=== PATIENT | female | born 1985 | race Caucasian/White ===

== ENCOUNTER 2020-04-26 14:28 | Inpatient (IN) | payer MEDICAID ==
--- NOTE | 2020-04-26 14:36 | ED ---
Recheck HPI <Derick Robb - Last Filed: 04/26/20 15:47> - General Source: patient Mode of arrival: wheelchair Limitations: no limitations <Magdiel Eduardo - Last Filed: 04/26/20 16:10> - General Chief Complaint: Recheck/Abnormal Lab/Rx Stated Complaint: Abnormal labs Time Seen by Provider: 04/26/20 14:35 - History of Present Illness Initial Comments: 34-year-old male presents emergency Department with a chief complaint of abnormal labs. Patient reports she has developed shortness of breath for the past several months along with generalized fatigue. Patient reports increased fatigue particularly with exertion. Patient reports she's been having some "chest congestion" that is also been going on for an extended period time. She denies any chest pain at this time. Reports she saw her primary care, Dr Rivas, this morning who ordered some laboratory work. Patient reports she had labs obtained today and I contacted to come to the emergency department for blood transfusion. Patient denies hematuria, hematochezia or melena. She denies abdominal back pain. Denies any vaginal bleeding. (Magdiel Eduardo) - Related Data Home Medications Medication Instructions Recorded Confirmed Albuterol Inhaler [Ventolin Hfa 1 puff INHALATION RT-Q4H PRN 04/26/20 04/26/20 Inhaler] Cetirizine HCl [Zyrtec] 10 mg PO HS 04/26/20 04/26/20 Ibuprofen [Motrin Ib] 600 mg PO Q8H PRN 04/26/20 04/26/20 Magnesium 200 mg PO HS 04/26/20 04/26/20 Omeprazole 20 mg PO HS 04/26/20 04/26/20 Allergies Allergy/AdvReac Type Severity Reaction Status Date / Time latex AdvReac Rash/Hives Verified 04/26/20 15:30 Review of Systems ROS Other: All systems not noted in ROS Statement are negative. <Derick Robb - Last Filed: 04/26/20 15:47> ROS Other: All systems not noted in ROS Statement are negative. <Magdiel Eduardo - Last Filed: 04/26/20 16:10> ROS Statement: Those systems with pertinent positive or pertinent negative responses have been documented in the HPI. Past Medical History Past Medical History: No Reported History History of Any Multi-Drug Resistant Organisms: None Reported Past Surgical History: Back Surgery Past Anesthesia/Blood Transfusion Reactions: No Reported Reaction Past Psychological History: No Psychological Hx Reported Smoking Status: Never smoker Past Alcohol Use History: None Reported Past Drug Use History: None Reported <Magdiel Eduardo - Last Filed: 04/26/20 16:10> General Exam Limitations: no limitations General appearance: alert, in no apparent distress, obese Head exam: Present: atraumatic, normocephalic, normal inspection Eye exam: Present: normal appearance, PERRL, EOMI, other (Pale conjunctiva) Pupils: Present: normal accommodation ENT exam: Present: normal exam, normal oropharynx (pale mucous membranes), mucous membranes moist Neck exam: Present: normal inspection, full ROM. Absent: tenderness Respiratory exam: Present: normal lung sounds bilaterally. Absent: respiratory distress, wheezes, rales, rhonchi, stridor Cardiovascular Exam: Present: normal rhythm, tachycardia, normal heart sounds Extremities exam: Present: normal inspection, full ROM, normal capillary refill. Absent: tenderness, pedal edema, joint swelling, calf tenderness Back exam: Present: normal inspection, full ROM. Absent: tenderness, CVA tenderness (R), CVA tenderness (L) Neurological exam: Present: alert, oriented X3, normal gait Psychiatric exam: Present: normal affect, normal mood Skin exam: Present: warm, dry, intact, normal color <Magdiel Eduardo - Last Filed: 04/26/20 16:10> Course Vital Signs 04/26/20 04/26/20 14:29 15:20 Temperature 98.0 F Pulse Rate 120 H 112 H Respiratory 18 16 Rate Blood Pressure 149/65 150/84 O2 Sat by Pulse 98 100 Oximetry Medical Decision Making - Lab Data Result diagrams: 04/26/20 15:10 04/26/20 15:10 <Derick Robb - Last Filed: 04/26/20 15:47> - Lab Data Result diagrams: 04/26/20 15:10 04/26/20 15:10 <Magdiel Eduardo - Last Filed: 04/26/20 16:10> - Medical Decision Making Patient reexamined and reevaluated by myself, Dr. Robb. Patient is resting comfortably in bed however does appear pale. Patient states symptoms have been occurring for months. Patient has had fatigue and some shortness of breath, especially with exertion. Patient does not appear in any distress at this time. Patient updated on results and plan. Additional studies ordered. Case was discussed in detail with Dr. Patel, covering for Dr. Rivas, who will admit. He does request 3 units of blood to be transfused as well as [employer] consult. (Derick Robb) - Lab Data Lab Results 04/26/20 04/26/20 04/26/20 Range/Units 15:10 15:10 15:10 WBC 7.3 (3.8-10.6) k/uL RBC 2.14 L (3.80-5.40) m/uL Hgb 2.9 L* (11.4-16.0) gm/dL Hct 12.2 L* (34.0-46.0) % MCV 57.0 L (80.0-100.0) fL MCH 13.3 L (25.0-35.0) pg MCHC 23.4 L (31.0-37.0) g/dL RDW 20.9 H (11.5-15.5) % Plt Count 469 H (150-450) k/uL MPV 7.1 Neutrophils % 69 % Lymphocytes % 24 % Monocytes % 5 % Eosinophils % 1 % Basophils % 1 % Neutrophils # 5.0 (1.3-7.7) k/uL Lymphocytes # 1.8 (1.0-4.8) k/uL Monocytes # 0.3 (0-1.0) k/uL Eosinophils # 0.1 (0-0.7) k/uL Basophils # 0.0 (0-0.2) k/uL Hypochromasia Marked Poikilocytosis Slight Anisocytosis Moderate Microcytosis Marked Retic Count (0.5-2.0) % PT (9.0-12.0) sec INR (<1.2) APTT (22.0-30.0) sec Sodium 140 (137-145) mmol/L Potassium 4.0 (3.5-5.1) mmol/L Chloride 107 (98-107) mmol/L Carbon Dioxide 21 L (22-30) mmol/L Anion Gap 12 mmol/L BUN 9 (7-17) mg/dL Creatinine 0.50 L (0.52-1.04) mg/dL Est GFR (CKD-EPI)AfAm >90 (>60 ml/min/1.73 sqM) Est GFR (CKD-EPI)NonAf >90 (>60 ml/min/1.73 sqM) Glucose 113 H (74-99) mg/dL Calcium 9.0 (8.4-10.2) mg/dL Total Bilirubin 0.4 (0.2-1.3) mg/dL AST 32 (14-36) U/L ALT 22 (4-34) U/L Alkaline Phosphatase 114 (38-126) U/L Troponin I (0.000-0.034) ng/mL Total Protein 7.2 (6.3-8.2) g/dL Albumin 3.9 (3.5-5.0) g/dL Stool Occult Blood (Negative) Blood Type O Positive Blood Type Recheck O Pos Bld Type Recheck Status No Antibody Screen NEGATIVE Crossmatch See Detail Spec Expiration Date 04/29/2020 - 230904/26/20 04/26/20 04/26/20 Range/Units 15:10 15:10 15:16 WBC (3.8-10.6) k/uL RBC (3.80-5.40) m/uL Hgb (11.4-16.0) gm/dL Hct (34.0-46.0) % MCV (80.0-100.0) fL MCH (25.0-35.0) pg MCHC (31.0-37.0) g/dL RDW (11.5-15.5) % Plt Count (150-450) k/uL MPV Neutrophils % % Lymphocytes % % Monocytes % % Eosinophils % % Basophils % % Neutrophils # (1.3-7.7) k/uL Lymphocytes # (1.0-4.8) k/uL Monocytes # (0-1.0) k/uL Eosinophils # (0-0.7) k/uL Basophils # (0-0.2) k/uL Hypochromasia Poikilocytosis Anisocytosis Microcytosis Retic Count (0.5-2.0) % PT 11.7 (9.0-12.0) sec INR 1.1 (<1.2) APTT 17.6 L (22.0-30.0) sec Sodium (137-145) mmol/L Potassium (3.5-5.1) mmol/L Chloride (98-107) mmol/L Carbon Dioxide (22-30) mmol/L Anion Gap mmol/L BUN (7-17) mg/dL Creatinine (0.52-1.04) mg/dL Est GFR (CKD-EPI)AfAm (>60 ml/min/1.73 sqM) Est GFR (CKD-EPI)NonAf (>60 ml/min/1.73 sqM) Glucose (74-99) mg/dL Calcium (8.4-10.2) mg/dL Total Bilirubin (0.2-1.3) mg/dL AST (14-36) U/L ALT (4-34) U/L Alkaline Phosphatase (38-126) U/L Troponin I <0.012 (0.000-0.034) ng/mL Total Protein (6.3-8.2) g/dL Albumin (3.5-5.0) g/dL Stool Occult Blood Negative (Negative) Blood Type Blood Type Recheck Bld Type Recheck Status Antibody Screen Crossmatch Spec Expiration Date 04/26/20 Range/Units 15:49 WBC (3.8-10.6) k/uL RBC (3.80-5.40) m/uL Hgb (11.4-16.0) gm/dL Hct (34.0-46.0) % MCV (80.0-100.0) fL MCH (25.0-35.0) pg MCHC (31.0-37.0) g/dL RDW (11.5-15.5) % Plt Count (150-450) k/uL MPV Neutrophils % % Lymphocytes % % Monocytes % % Eosinophils % % Basophils % % Neutrophils # (1.3-7.7) k/uL Lymphocytes # (1.0-4.8) k/uL Monocytes # (0-1.0) k/uL Eosinophils # (0-0.7) k/uL Basophils # (0-0.2) k/uL Hypochromasia Poikilocytosis Anisocytosis Microcytosis Retic Count 2.2 H (0.5-2.0) % PT (9.0-12.0) sec INR (<1.2) APTT (22.0-30.0) sec Sodium (137-145) mmol/L Potassium (3.5-5.1) mmol/L Chloride (98-107) mmol/L Carbon Dioxide (22-30) mmol/L Anion Gap mmol/L BUN (7-17) mg/dL Creatinine (0.52-1.04) mg/dL Est GFR (CKD-EPI)AfAm (>60 ml/min/1.73 sqM) Est GFR (CKD-EPI)NonAf (>60 ml/min/1.73 sqM) Glucose (74-99) mg/dL Calcium (8.4-10.2) mg/dL Total Bilirubin (0.2-1.3) mg/dL AST (14-36) U/L ALT (4-34) U/L Alkaline Phosphatase (38-126) U/L Troponin I (0.000-0.034) ng/mL Total Protein (6.3-8.2) g/dL Albumin (3.5-5.0) g/dL Stool Occult Blood (Negative) Blood Type Blood Type Recheck Bld Type Recheck Status Antibody Screen Crossmatch Spec Expiration Date - EKG Data EKG Comments: Sinus tachycardia, no ST or T-wave changes. Ventricular rate 111, NM 140, QRS 84, QTc 465. (Magdiel Eduardo) Critical Care Time Critical Care Time: Yes <Magdiel Eduardo - Last Filed: 04/26/20 16:10> Critical Care Time: Over 31 minutes (Magdiel Eduardo) Disposition <Derick Robb - Last Filed: 04/26/20 15:47> Is patient prescribed a controlled substance at d/c from ED?: No Time of Disposition: 16:10 <Magdiel Eduardo - Last Filed: 04/26/20 16:10> Clinical Impression: Microcytic anemia, Fatigue Disposition: ADMITTED IP TO THIS HOSP Condition: Good Referrals: Brian Rivas MD [Primary Care Provider] - 1-2 days
[2020-04-26 15:14] LABS: Anisocytosis Moderate; Basophils % (A) 1 %; Eosinophils # (A) 0.1 k/uL (0-0.7); Eosinophils % (A) 1 %; Hypochromasia Marked; Lymphocytes # (A) 1.8 k/uL (1.0-4.8); Lymphocytes % (A) 24 %; MCH 13.3 pg (25.0-35.0); MCHC 23.4 g/dL (31.0-37.0); Mean Platelet Volume 7.1; Microcytosis Marked; Monocytes # (A) 0.3 k/uL (0-1.0); Monocytes % (A) 5 %; Neutrophils % (A) 69 %; Platelet Count 469 k/uL (150-450); Poikilocytosis Slight; RBC 2.14 m/uL (3.80-5.40); RDW 20.9 % (11.5-15.5); WBC 7.3 k/uL (3.8-10.6)
[2020-04-26 15:21] LABS: HCT 12.2 % (34.0-46.0); HGB 2.9 gm/dL (11.4-16.0)
[2020-04-26 15:23] LABS: ALT 22 U/L (4-34); AST 32 U/L (14-36); African American GFR (CKD) >90 (>60 ml/min/1.73 sqM); Albumin 3.9 g/dL (3.5-5.0); Alkaline Phosphatase 114 U/L (38-126); Anion Gap 12 mmol/L; Blood Urea Nitrogen 9 mg/dL (7-17); Carbon Dioxide 21 mmol/L (22-30); Chloride 107 mmol/L (98-107); Glucose 113 mg/dL (74-99); Non-African American GFR(CKD) >90 (>60 ml/min/1.73 sqM); Sodium 140 mmol/L (137-145); Total Bilirubin 0.4 mg/dL (0.2-1.3); Total Protein 7.2 g/dL (6.3-8.2)
[2020-04-26 15:33] LABS: INR 1.1 (<1.2); Prothrombin Time 11.7 sec (9.0-12.0)
[2020-04-26 15:49] LABS: Partial Thromboplastin Time 17.6 sec (22.0-30.0)
--- NOTE | 2020-04-26 15:50 | XR ---
EXAMINATION TYPE: XR chest 2V DATE OF EXAM: 04/26/2020 COMPARISON: NONE HISTORY: Weakness and anemia. TECHNIQUE: Frontal and lateral views of the chest are obtained. FINDINGS: There is no focal air space opacity, pleural effusion, or pneumothorax seen. The cardiac silhouette size is enlarged. Osseous structures are intact. IMPRESSION: Cardiomegaly without acute pulmonary process.
[2020-04-26 15:56] LABS: Reticulocyte % 2.2 % (0.5-2.0)
[2020-04-26] MEDS ORDERED: NALOXONE 0.4 MG/ML 1 ML VIAL IV PRN (16:08)
[2020-04-26] MEDS ORDERED: HYDROcodone/APAP 5-325MG 1 EACH TAB PO PRN (16:08)
[2020-04-26] MEDS ORDERED: HYDROmorphone 0.5 MG/0.5 ML SYRINGE IVP PRN (16:08)
[2020-04-26] MEDS ORDERED: LORazepam 2 MG/ML INJ IV PRN (16:08)
[2020-04-26] MEDS ORDERED: MORPHINE SULFATE 4 MG/ML SYRINGE IV PRN (16:08)
[2020-04-26] MEDS ORDERED: ONDANSETRON 4 MG/2 ML VIAL IVP PRN (16:08)
--- NOTE | 2020-04-26 17:32 | US ---
EXAMINATION TYPE: US pelvic complete DATE OF EXAM: 04/26/2020 COMPARISON: None CLINICAL HISTORY: 34-year-old female anemia. EC patient with very low hemoglobin; ; patient state d since onset of menstruation has had heavy periods; patient denies vaginal bleeding now. Not on winston od now. TECHNIQUE: Transabdominal (TA). Transabdominal sonographic images of the pelvis were acquired to pr ovide best field of view due to the above patient history; HT5'5", WT [id number]. Date of LMP: 03/31/2020 FINDINGS: EXAM MEASUREMENTS: Uterus: 14.5 x 9.9 x 8.4 cm Endometrial Stripe: obscured by large uterine fibroid Right Ovary: 5.6 x 4.0x 4.2 cm Left Ovary: 2.2 x 2.3 x 2.0 cm 1. Uterus: abnormally enlarged uterus; heterogeneous appearance to uterus and endometrium with large heterogeneous round mass seen within mid and upper uterus measuring 6.9 x 7.6 x 6.2cm. There is winston pheral and internal color flow seen suggesting large uterine fibroid obscuring endometrium. 2. Endometrium: endometrial stripe is obscured by large uterine fibroid 3. Right Ovary: enlarged right ovary secondary to a cyst measuring 4.0 x 2.9 x 3.1cm 4. Left Ovary: multiple small follicles seen color flow imaging is observed in bilateral ovary 5. Bilateral Adnexa: wnl 6. Posterior cul-de-sac: wnl IMPRESSION: 1. Large centrally located uterine fibroid measuring up to 7.6 cm obscuring the endometrial stripe. C onsider [facility] referral if concern for a symptomatic submucosal or intracavitary fibroid. 2. Right ovary enlarged secondary to a 4.0 cm cyst, possible dominant follicle or functional cyst. Fo llow-up in 6-8 weeks to ensure involution.
--- NOTE | 2020-04-26 22:43 | P.HPIM ---
History of Present Illness H&P Date: 04/26/20 Chief Complaint: Weak and tired History of presenting complaint: This is a very pleasant 34-year-old patient of Dr. Rivas. Under [place] possible history. Progressively over last few months patient noticed that she is getting more and more short of breath and weakness dizzy tired. Gets cramps in lower extremity. For quite sometime she normally has menstrual cycle lasting for at least 5-6 days. And gets thick clots. Patient also does take Motrin intermittently for different aches and pains. She was found to have a hemoglobin of 2.6. Repeat hemoglobin here was 2.9. Was ordered 3 units of blood in the ER. Currently in a second unit of blood transfusion. Review of systems: GEN.: Tired EYES: None HEENT: None NECK: None RESPIRATORY: None CARDIOVASCULAR: None GASTROINTESTINAL: None GENITOURINARY: Heavy menstrual cycle MUSCULOSKELETAL: None LYMPHATICS: None HEMATOLOGICAL: None PSYCHIATRY: None NEUROLOGICAL: None Past medical history to include: Chronic menorrhagia, intermittent aches and pains in the joints Social history: Does not smoke or drink alcohol. Works at [employer]. . Has a 5-year-old son Family history: Reviewed, noncontributory to presentation Physical examination: VITAL SIGNS: 98.2, 96, 18, 162/93, 98% GENERAL: BMI 40.8, declining in bed, tired. EYES: Pupils equal. Conjunctiva palel. HEENT: External appearance of nose and ears normal, oral cavity grossly normal. NECK: JVD not raised; masses not palpable. HEART: First and second heart sounds are normal; no edema. LUNGS: Respiratory rate normal; clear to auscultation. ABDOMEN: Soft, nontender, liver spleen not palpable, no masses palpable. PSYCH: Alert and oriented x3; mood and affect normal. NEUROLOGICAL: Cranial nerves grossly intact; no facial asymmetry, power and sensation grossly intact. LYMPHATICS: No lymph nodes palpable in the axilla and neck INVESTIGATIONS, reviewed in the clinical context: White count 7.3 hemoglobin 2.9 decreased MCV platelets 469. Reticulocyte count 2.2 potassium 4.0 creatinine 0.50 EKG tracing personally reviewed by me-normal sinus rhythm with a heart rate of 111 Chest x-ray film personally reviewed by me--borderline cardiomegaly Pelvic ultrasound: Abnormally enlarged uterus and endometrium with large hetero genous ground mass seen within with an upper uterus 6.9 x 7.6 x 6.2 cm large uterine fibroid obscuring endometrium. Enlarged right ovary secondary to assist left ovary multiple small follicles seen. Assessment: -Possibly acute on chronic severe microcytic anemia from blood loss dominantly from menorrhagia secondary to large uterine fibroid and a hyperactive endometrium. Patient has a 5-year-old child and patient states she is completed to family. Other endometrial ablation and/or a hysterectomy may be indicated consideration given the severe blood loss. -Right ovary enlarged seconded to 4 cm cyst. -Morbid obesity BMI 40.8 -Patient does take intermittent NSAIDs in the form of Motrin for aches and pains answered endoscopy would be warranted. Plan: Patient been ordered 3 units of blood for severe anemia which is symptomatic. Consultation made to GI and gynecology. Care was discussed with the patient and questions were answered. Repeat CBC in the morning. Past Medical History Past Medical History: No Reported History History of Any Multi-Drug Resistant Organisms: None Reported Past Surgical History: Back Surgery Past Anesthesia/Blood Transfusion Reactions: No Reported Reaction Smoking Status: Never smoker - Past Family History Father Family Medical History: No Reported History Mother Family Medical History: No Reported History Medications and Allergies Home Medications Medication Instructions Recorded Confirmed Type Albuterol Inhaler [Ventolin Hfa 1 puff INHALATION RT-Q4H PRN 04/26/20 04/26/20 History Inhaler] Cetirizine HCl [Zyrtec] 10 mg PO HS 04/26/20 04/26/20 History Ibuprofen [Motrin Ib] 600 mg PO Q8H PRN 04/26/20 04/26/20 History Magnesium 200 mg PO HS 04/26/20 04/26/20 History Omeprazole 20 mg PO HS 04/26/20 04/26/20 History Allergies Allergy/AdvReac Type Severity Reaction Status Date / Time latex AdvReac Rash/Hives Verified 04/26/20 15:30 Physical Exam Vitals: Vital Signs Temp Pulse Resp BP Pulse Ox 04/26/20 20:39 99.1 F 95 18 165/94 97 04/26/20 20:18 98 04/26/20 20:09 98.4 F 101 H 18 163/89 97 04/26/20 20:04 99.1 F 99 18 160/92 97 04/26/20 20:00 98.2 F 96 18 162/93 98 04/26/20 19:59 98.2 F 87 18 161/91 98 04/26/20 19:03 98.4 F 104 H 169/99 98 04/26/20 18:25 99.8 F H 101 H 18 170/86 99 04/26/20 17:28 99.1 F 98 18 149/80 2 L 04/26/20 16:45 99.0 F 109 H 16 155/83 04/26/20 16:30 98.6 F 108 H 16 155/83 04/26/20 16:15 99.8 F H 102 H 14 158/90 100 04/26/20 16:05 99.8 F H 100 13 161/87 100 04/26/20 15:55 98 F 106 H 20 161/87 100 04/26/20 15:20 112 H 16 150/84 100 04/26/20 14:29 98.0 F 120 H 18 149/65 98 Intake and Output 04/26/20 04/26/20 04/26/20 06:59 14:59 22:59 Intake Total 310 Balance 310 Intake: Blood Product 310 Rc Cpda-1 Unit 310 [id number] Rc Cpda-1 Unit 0 [id number] Other: Weight 111.13 kg Results CBC & Chem 7: 04/26/20 15:10 04/26/20 15:10 Labs: Abnormal Lab Results - Last 24 Hours (Table) 04/26/20 04/26/20 04/26/20 Range/Units 15:10 15:10 15:10 RBC 2.14 L (3.80-5.40) m/uL Hgb 2.9 L* (11.4-16.0) gm/dL Hct 12.2 L* (34.0-46.0) % MCV 57.0 L (80.0-100.0) fL MCH 13.3 L (25.0-35.0) pg MCHC 23.4 L (31.0-37.0) g/dL RDW 20.9 H (11.5-15.5) % Plt Count 469 H (150-450) k/uL Retic Count (0.5-2.0) % APTT (22.0-30.0) sec Carbon Dioxide 21 L (22-30) mmol/L Creatinine 0.50 L (0.52-1.04) mg/dL Glucose 113 H (74-99) mg/dL Crossmatch See Detail 04/26/20 04/26/20 Range/Units 15:10 15:49 RBC (3.80-5.40) m/uL Hgb (11.4-16.0) gm/dL Hct (34.0-46.0) % MCV (80.0-100.0) fL MCH (25.0-35.0) pg MCHC (31.0-37.0) g/dL RDW (11.5-15.5) % Plt Count (150-450) k/uL Retic Count 2.2 H (0.5-2.0) % APTT 17.6 L (22.0-30.0) sec Carbon Dioxide (22-30) mmol/L Creatinine (0.52-1.04) mg/dL Glucose (74-99) mg/dL Crossmatch Thrombosis Risk Factor Assmnt - Choose All That Apply Any of the Below Risk Factors Present?: Yes Each Factor Represents 1 point: Obesity (BMI >25) Other Risk Factors: No Other congenital or acquired thrombophilia - If yes, enter type in comment: No Thrombosis Risk Factor Assessment Total Risk Factor Score: 1 Thrombosis Risk Factor Assessment Level: Low Risk
[2020-04-27] MEDS: ACETAMINOPHEN TAB 325 MG TAB PO PRN ×3 (02:12→18:36)
[2020-04-27 03:17] LABS: % Iron Saturation 1.8 (12.00-45.00); Ferritin 3.1 ng/mL (10.0-291.0)
[2020-04-27 08:44] LABS: Anisocytosis Marked; Basophils % (A) 0 %; Eosinophils # (A) 0.1 k/uL (0-0.7); Eosinophils % (A) 1 %; HCT 20.4 % (34.0-46.0); Hypochromasia Marked; Lymphocytes % (A) 25 %; MCH 21.4 pg (25.0-35.0); MCHC 31.2 g/dL (31.0-37.0); MCV 68.6 fL (80.0-100.0); Mean Platelet Volume 8.5; Microcytosis Marked; Monocytes # (A) 0.4 k/uL (0-1.0); Monocytes % (A) 5 %; Neutrophils # (A) 5.3 k/uL (1.3-7.7); Neutrophils % (A) 67 %; Platelet Count 373 k/uL (150-450); Poikilocytosis Marked; RBC 2.97 m/uL (3.80-5.40); WBC 7.9 k/uL (3.8-10.6)
--- NOTE | 2020-04-27 09:33 | P.OBCN ---
History of Present Illness Consult date: 04/27/20 Reason for consult: menorrhagia, other (Fibroid uterus, anemia) Chief complaint: Chronic Anemia due to medical condition History of present illness: 34-year-old presented to Dr. Rivas's office yesterday complaining of shortness of breath just by getting up from bed and walking to the bathroom. She also has some leg cramping and fatigue. She was noted to be pale and her hemoglobin was very low, she was sent to the emergency room. Her hemoglobin was found to be 2.9 so she was given 3 units of packed red blood cells yesterday. Currently she is feeling a lot better. Her menstrual history is that she does have periods monthly lasting 5-6 days. She spots for 2 days before her period and then the first day she can still move around the house during her normal functions. Second and third day of her period she's spending a lot of time in the bathroom, every 20-30 minutes she is changing super tampons and pads. This has been an ongoing issue for her. She just recently got health insurance and may need appointment Dr. Rivas. The patient does not know if she has other medical conditions as she has not seen a doctor recently. Review of Systems All systems: negative Constitutional: Denies chills, Denies fever Eyes: denies blurred vision, denies pain Ears, nose, mouth and throat: Denies headache, Denies sore throat Cardiovascular: Reports dyspnea on exertion, Reports shortness of breath, Denies chest pain Respiratory: Denies cough Gastrointestinal: Denies abdominal pain, Denies change in bowel habits, Denies diarrhea, Denies nausea, Denies vomiting Genitourinary: Denies dysuria, Denies hematuria Menstruation: Reports period heavy (Due to come again next week) Musculoskeletal: Reports as per HPI Integumentary: Denies pruritus, Denies rash Neurological: Denies numbness, Denies weakness Psychiatric: Denies anxiety, Denies depression Endocrine: Reports fatigue, Denies weight change Past Medical History Past Medical History: No Reported History Additional Past Medical History / Comment(s): Obstetric history: She had a vaginal delivery [address] Reece History of Any Multi-Drug Resistant Organisms: None Reported Past Surgical History: Back Surgery Past Anesthesia/Blood Transfusion Reactions: No Reported Reaction Smoking Status: Never smoker - Past Family History Father Family Medical History: No Reported History Mother Family Medical History: No Reported History Medications and Allergies Home Medications Medication Instructions Recorded Confirmed Type Albuterol Inhaler [Ventolin Hfa 1 puff INHALATION RT-Q4H PRN 04/26/20 04/26/20 History Inhaler] Cetirizine HCl [Zyrtec] 10 mg PO HS 04/26/20 04/26/20 History Ibuprofen [Motrin Ib] 600 mg PO Q8H PRN 04/26/20 04/26/20 History Magnesium 200 mg PO HS 04/26/20 04/26/20 History Omeprazole 20 mg PO HS 04/26/20 04/26/20 History Allergies Allergy/AdvReac Type Severity Reaction Status Date / Time latex AdvReac Rash/Hives Verified 04/26/20 15:30 Exam Osteopathic Statement: *. No significant issues noted on an osteopathic structural exam other than those noted in the History and Physical/Consult. Vital Signs Temp Pulse Pulse Resp BP BP Pulse Ox 04/27/20 06:14 98.9 F 76 18 147/77 96 04/27/20 02:00 98 F 98 18 158/82 98 04/27/20 01:07 99.3 F 98 18 131/78 94 L 04/27/20 00:37 99.5 F 93 18 134/74 95 04/27/20 00:27 98.7 F 92 18 132/76 95 04/27/20 00:11 98.5 F 93 18 170/95 97 04/26/20 20:39 99.1 F 95 18 165/94 97 04/26/20 20:18 98 04/26/20 20:09 98.4 F 101 H 18 163/89 97 04/26/20 20:04 99.1 F 99 18 160/92 97 04/26/20 20:00 98.2 F 96 100 18 162/93 98 04/26/20 19:59 98.2 F 87 18 161/91 98 04/26/20 19:03 98.4 F 104 H 169/99 98 04/26/20 18:25 99.8 F H 101 H 18 170/86 99 04/26/20 17:28 99.1 F 98 18 149/80 2 L 04/26/20 16:45 99.0 F 109 H 16 155/83 04/26/20 16:30 98.6 F 108 H 16 155/83 04/26/20 16:15 99.8 F H 102 H 14 158/90 100 04/26/20 16:05 99.8 F H 100 13 161/87 100 04/26/20 15:55 98 F 106 H 20 161/87 100 04/26/20 15:20 112 H 16 150/84 100 04/26/20 14:29 98.0 F 120 H 18 149/65 98 Intake and Output 04/26/20 04/27/20 04/27/20 22:59 06:59 14:59 Intake Total 310 620 Balance 310 620 Intake: Blood Product 310 620 Rc As-1 Unit 310 [id number] Rc Cpda-1 Unit 310 [id number] Rc Cpda-1 Unit 0 310 [id number] Other: # Voids 2 Weight 112.4 kg Heart regular rate and rhythm Lungs: Clear to auscultation bilaterally Abdomen: Soft, tender in the bilateral upper quadrants, there is a 2 cm palpable firmness within the adipose tissue in the right upper quadrant. Bilateral lower quadrants are free from pain. Pelvis: I will do this exam in the office outpatient as this bed is not adequate to do a proper exam Results Result Diagrams: 04/26/20 15:10 04/26/20 15:10 Abnormal Lab Results - Last 24 Hours (Table) 04/26/20 04/26/20 04/26/20 Range/Units 15:10 15:10 15:10 RBC 2.14 L (3.80-5.40) m/uL Hgb 2.9 L* (11.4-16.0) gm/dL Hct 12.2 L* (34.0-46.0) % MCV 57.0 L (80.0-100.0) fL MCH 13.3 L (25.0-35.0) pg MCHC 23.4 L (31.0-37.0) g/dL RDW 20.9 H (11.5-15.5) % Plt Count 469 H (150-450) k/uL Retic Count (0.5-2.0) % APTT (22.0-30.0) sec Carbon Dioxide 21 L (22-30) mmol/L Creatinine 0.50 L (0.52-1.04) mg/dL Glucose 113 H (74-99) mg/dL Iron (50-170) ug/dL TIBC (228-460) ug/dL % Saturation (12.00-45.00) Ferritin (10.0-291.0) ng/mL Crossmatch See Detail 04/26/20 04/26/20 04/26/20 Range/Units 15:10 15:10 15:49 RBC (3.80-5.40) m/uL Hgb (11.4-16.0) gm/dL Hct (34.0-46.0) % MCV (80.0-100.0) fL MCH (25.0-35.0) pg MCHC (31.0-37.0) g/dL RDW (11.5-15.5) % Plt Count (150-450) k/uL Retic Count 2.2 H (0.5-2.0) % APTT 17.6 L (22.0-30.0) sec Carbon Dioxide (22-30) mmol/L Creatinine (0.52-1.04) mg/dL Glucose (74-99) mg/dL Iron 9 L (50-170) ug/dL TIBC 499 H (228-460) ug/dL % Saturation 1.80 L (12.00-45.00) Ferritin 3.1 L (10.0-291.0) ng/mL Crossmatch Assessment and Plan (1) Fibroid uterus Current Visit: Yes Status: Acute Code(s): D25.9 - LEIOMYOMA OF UTERUS, UNSPECIFIED SNOMED Code(s): 61484463 (2) Microcytic anemia Current Visit: Yes Status: Acute Code(s): D50.9 - IRON DEFICIENCY ANEMIA, UNSPECIFIED SNOMED Code(s): 745463200 Plan: Ultrasound revealed the uterus to be 14 cm with a 7.6 cm fibroid encroaching into the endometrial cavity. I had a long discussion with the patient about this fibroid and her bleeding. She is not a candidate for an endometrial ablation due to the size of her uterus and the position of the fibroid. control pills or Provera would be essentially a Band-Aid on a larger problem. She is willing to and excited for definitive treatment of a hysterectomy. We briefly touched on the topic of hysterectomy and whether this would be total abdominal hysterectomy or a laparoscopic hysterectomy with da Lynn. I really need to evaluate her in my office for a full physical exam to determine what type of hysterectomy she will have. This hysterectomy must not be delayed to long, however, we need to determine that she is healthy enough to have surgery. Primarily, we will ensure that her hemoglobin is up to normal and states stable. Secondly, she may need to have lab work and EKG reviewed to make sure that she does not have any other medical conditions underlying. I'm awaiting hematology recommendations but would be interested to see if they would be on board with her going on 10 mg of Provera daily. Since she is scheduled for her next period next week, the thought being this Provera should lighten up the amount that she bleeds until she is ready for the hysterectomy.
[2020-04-27 09:43] LABS: HGB 6.4 gm/dL (11.4-16.0); RDW 27.4 % (11.5-15.5)
--- NOTE | 2020-04-27 10:21 | P.CONS ---
History of Present Illness - Reason for Consult Consult date: 04/27/20 severe anemia Requesting physician: Dudley Patel - Chief Complaint abnormal lab - History of Present Illness Pt is a very pleasant female we have been asked to see regarding severe aneia-Hgb 2.9 on admit, severe microcytosis and hypochromic, iron studies are basically nil. She has Hx of heavy menses, tried OBC to slow but, no good control. She denies any other bleeding, unusual bruising, no family history of blood disorders. She noted SOB on exertion, had really no other symptoms to report. She has been seen by [employer], GI consulted. Hx of asthma and chronic ibuprofen use Review of Systems 14 point ROS is neg except as stated in HPI Past Medical History Past Medical History: No Reported History Additional Past Medical History / Comment(s): Obstetric history: She had a vaginal delivery [address] Reece History of Any Multi-Drug Resistant Organisms: None Reported Past Surgical History: Back Surgery Past Anesthesia/Blood Transfusion Reactions: No Reported Reaction Past Psychological History: No Psychological Hx Reported Smoking Status: Never smoker Past Alcohol Use History: None Reported Past Drug Use History: None Reported - Past Family History Father Family Medical History: No Reported History Mother Family Medical History: No Reported History Medications and Allergies Home Medications Medication Instructions Recorded Confirmed Type Albuterol Inhaler [Ventolin Hfa 1 puff INHALATION RT-Q4H PRN 04/26/20 04/26/20 History Inhaler] Cetirizine HCl [Zyrtec] 10 mg PO HS 04/26/20 04/26/20 History Ibuprofen [Motrin Ib] 600 mg PO Q8H PRN 04/26/20 04/26/20 History Magnesium 200 mg PO HS 04/26/20 04/26/20 History Omeprazole 20 mg PO HS 04/26/20 04/26/20 History Allergies Allergy/AdvReac Type Severity Reaction Status Date / Time latex AdvReac Rash/Hives Verified 04/26/20 15:30 Physical Exam Vitals: Vital Signs Temp Pulse Pulse Resp BP BP Pulse Ox 04/27/20 06:14 98.9 F 76 18 147/77 96 04/27/20 02:00 98 F 98 18 158/82 98 04/27/20 01:07 99.3 F 98 18 131/78 94 L 04/27/20 00:37 99.5 F 93 18 134/74 95 04/27/20 00:27 98.7 F 92 18 132/76 95 04/27/20 00:11 98.5 F 93 18 170/95 97 04/26/20 20:39 99.1 F 95 18 165/94 97 04/26/20 20:18 98 04/26/20 20:09 98.4 F 101 H 18 163/89 97 04/26/20 20:04 99.1 F 99 18 160/92 97 04/26/20 20:00 98.2 F 96 100 18 162/93 98 04/26/20 19:59 98.2 F 87 18 161/91 98 04/26/20 19:03 98.4 F 104 H 169/99 98 04/26/20 18:25 99.8 F H 101 H 18 170/86 99 04/26/20 17:28 99.1 F 98 18 149/80 2 L 04/26/20 16:45 99.0 F 109 H 16 155/83 04/26/20 16:30 98.6 F 108 H 16 155/83 04/26/20 16:15 99.8 F H 102 H 14 158/90 100 04/26/20 16:05 99.8 F H 100 13 161/87 100 04/26/20 15:55 98 F 106 H 20 161/87 100 04/26/20 15:20 112 H 16 150/84 100 04/26/20 14:29 98.0 F 120 H 18 149/65 98 Intake and Output 04/26/20 04/27/20 04/27/20 22:59 06:59 14:59 Intake Total 310 620 240 Balance 310 620 240 Intake: Oral 240 Blood Product 310 620 Rc As-1 Unit 310 [id number] Rc Cpda-1 Unit 310 [id number] Rc Cpda-1 Unit 0 310 [id number] Other: # Voids 2 1 Weight 112.4 kg - Constitutional General appearance: cooperative, morbidly obese, no acute distress - EENT Eyes: anicteric sclerae, EOMI, dentition normal ENT: hearing grossly normal, normal oropharynx - Neck Neck: no lymphadenopathy - Respiratory Respiratory: bilateral: CTA - Cardiovascular Rhythm: regular Heart sounds: normal: S1, S2 Abnormal Heart Sounds: no systolic murmur, no diastolic murmur, no rub, no S3 Gallop, no S4 Gallop, no click, no other leg Peripheral Edema: bilateral: 1+ - Gastrointestinal General gastrointestinal: no absent bowel sounds, no decreased bowel sounds, no distended, no hepatomegaly, no hyperactive bowel sounds, normal bowel sounds, no organomegaly, no rigid, no scaphoid, soft, no splenomegaly, no tenderness, no umbilical hernia, no ventral hernia - Integumentary good color considering extent of anemia Integumentary: normal turgor - Neurologic Neurologic: CNII-XII intact - Musculoskeletal Musculoskeletal: strength equal bilaterally - Psychiatric Psychiatric: A&O x's 3, appropriate affect, intact judgment & insight Results CBC & Chem 7: 04/27/20 07:58 04/26/20 15:10 Labs: Abnormal Lab Results - Last 24 Hours (Table) 04/26/20 04/26/20 04/26/20 Range/Units 15:10 15:10 15:10 RBC 2.14 L (3.80-5.40) m/uL Hgb 2.9 L* (11.4-16.0) gm/dL Hct 12.2 L* (34.0-46.0) % MCV 57.0 L (80.0-100.0) fL MCH 13.3 L (25.0-35.0) pg MCHC 23.4 L (31.0-37.0) g/dL RDW 20.9 H (11.5-15.5) % Plt Count 469 H (150-450) k/uL Retic Count (0.5-2.0) % APTT (22.0-30.0) sec Carbon Dioxide 21 L (22-30) mmol/L Creatinine 0.50 L (0.52-1.04) mg/dL Glucose 113 H (74-99) mg/dL Iron (50-170) ug/dL TIBC (228-460) ug/dL % Saturation (12.00-45.00) Ferritin (10.0-291.0) ng/mL Crossmatch See Detail 04/26/20 04/26/20 04/26/20 Range/Units 15:10 15:10 15:49 RBC (3.80-5.40) m/uL Hgb (11.4-16.0) gm/dL Hct (34.0-46.0) % MCV (80.0-100.0) fL MCH (25.0-35.0) pg MCHC (31.0-37.0) g/dL RDW (11.5-15.5) % Plt Count (150-450) k/uL Retic Count 2.2 H (0.5-2.0) % APTT 17.6 L (22.0-30.0) sec Carbon Dioxide (22-30) mmol/L Creatinine (0.52-1.04) mg/dL Glucose (74-99) mg/dL Iron 9 L (50-170) ug/dL TIBC 499 H (228-460) ug/dL % Saturation 1.80 L (12.00-45.00) Ferritin 3.1 L (10.0-291.0) ng/mL Crossmatch 04/27/20 Range/Units 07:58 RBC 2.97 L (3.80-5.40) m/uL Hgb 6.4 L* D (11.4-16.0) gm/dL Hct 20.4 L (34.0-46.0) % MCV 68.6 L D (80.0-100.0) fL MCH 21.4 L (25.0-35.0) pg MCHC (31.0-37.0) g/dL RDW 27.4 H (11.5-15.5) % Plt Count (150-450) k/uL Retic Count (0.5-2.0) % APTT (22.0-30.0) sec Carbon Dioxide (22-30) mmol/L Creatinine (0.52-1.04) mg/dL Glucose (74-99) mg/dL Iron (50-170) ug/dL TIBC (228-460) ug/dL % Saturation (12.00-45.00) Ferritin (10.0-291.0) ng/mL Crossmatch Comments: Review [facility] imaging reports Assessment and Plan (1) Microcytic hypochromic anemia Narrative/Plan: 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 Pt seen by [facility] System [facility] with plans for hysterectomy in the future, once Hgb in a safer range. Agree with plan Pt intolerant to oral iron. Aggressive parenteral iron supplementation ordered. She will cont IV iron outpt. Hgb 6.3 s/p 3 units PRBCs. No further transfusions at this time. Pt was stable at 2.9-she is feeling really well at 6.3 Pending GI evaluation Due to severe vaginal bleeding, pt will be worked up in the outpatient setting for any coagulation disorders that could contribute to excessive bleeding. Pt verbalized understanding all of the above and agrees with plan. Current Visit: Yes Status: Acute Priority: High Code(s): D50.9 - IRON D EFICIENCY ANEMIA, UNSPECIFIED SNOMED Code(s): 91567162 Plan: Doctor attests: I performed a history and physical examination of this patient, developed impression and plan of care. Discussed with dictator. I agree with dictators note, documented as a scribe.
[2020-04-27] MEDS: SODIUM FERRIC GLUCONAT-SUCROSE 125 MG in SODIUM CHLORIDE 0.9% 100 ML IVPB SCH (11:51)
[2020-04-27] MEDS: traMADol 50 MG TAB PO PRN (19:52)
[2020-04-27] MEDS: CYCLOBENZAPRINE 10 MG TAB PO PRN (19:52)
--- NOTE | 2020-04-27 19:54 | P.PN ---
Progress Note - Text Progress Note Date: 04/27/20 Chief Complaint: Weak and tired History of presenting complaint: This is a very pleasant 34-year-old patient of Dr. Rivas. Under [place] possible history. Progressively over last few months patient noticed that she is getting more and more short of breath and weakness dizzy tired. Gets cramps in lower extremity. For quite sometime she normally has menstrual cycle lasting for at least 5-6 days. And gets thick clots. Patient also does take Motrin intermittently for different aches and pains. She was found to have a hemoglobin of 2.6. Repeat hemoglobin here was 2.9. Was ordered 3 units of blood i Today-has received 3 units of blood. Feeling better. IV iron ordered by hematology. Review of systems: Was done for constitutional, cardiovascular, GI, pulmonary. relevant finding as above Active Medications Acetaminophen (Acetaminophen Tab 325 Mg Tab) 650 mg PO Q6HR PRN PRN Reason: Fever and/ or Pain Last Admin: 04/27/20 18:36 Dose: 650 mg Documented by: Hydrocodone Bitart/Acetaminophen (Hydrocodone/Apap 5-325mg 1 Each Tab) 1 each PO Q4HR PRN PRN Reason: Moderate Pain Last Admin: 04/27/20 11:50 Dose: 1 each Documented by: Cyclobenzaprine HCl (Cyclobenzaprine 10 Mg Tab) 10 mg PO Q8HR PRN PRN Reason: Muscle Spasm Hydromorphone HCl (Hydromorphone 0.5 Mg/0.5 Ml Syringe) 0.5 mg IVP Q3HR PRN PRN Reason: Moderate Pain Ferric Sodium Gluconate 125 mg (/ Sodium Chloride) 110 mls @ 100 mls/hr IVPB DAILY KEN Stop: 04/28/20 10:05 Last Admin: 04/27/20 11:51 Dose: 100 mls/hr Documented by: Lorazepam (Lorazepam 2 Mg/Ml Inj) 0.5 mg IV Q6HR PRN PRN Reason: Anxiety Last Admin: 04/27/20 00:25 Dose: 0.5 mg Documented by: Morphine Sulfate (Morphine Sulfate 4 Mg/Ml Syringe) 4 mg IV Q4HR PRN PRN Reason: Severe Pain Naloxone HCl (Naloxone 0.4 Mg/Ml 1 Ml Vial) 0.2 mg IV Q2M PRN PRN Reason: Opioid Reversal Ondansetron HCl (Ondansetron 4 Mg/2 Ml Vial) 4 mg IVP Q8HR PRN PRN Reason: Nausea And Vomiting Tramadol HCl (Tramadol 50 Mg Tab) 50 mg PO Q6H PRN PRN Reason: Moderate Pain Past medical history to include: Chronic menorrhagia, intermittent aches and pains in the joints Social history: Does not smoke or drink alcohol. Works at [employer]. . Has a 5-year-old son Family history: Reviewed, noncontributory to presentation Physical examination: VITAL SIGNS: 98, 80, 18, 163/93, 96% room air GENERAL: planning a chair, feeling better EYES: Pupils equal. Conjunctiva pale. HEENT: External appearance of nose and ears normal, oral cavity grossly normal. NECK: JVD not raised; masses not palpable. HEART: First and second heart sounds are normal; no edema. LUNGS: Respiratory rate normal; clear to auscultation. ABDOMEN: Soft, nontender, liver spleen not palpable, no masses palpable. PSYCH: Alert and oriented x3; mood and affect normal. INVESTIGATIONS, reviewed in the clinical context: April 27: Hemoglobin 6.4 White count 7.3 hemoglobin 2.9 decreased MCV platelets 469. Reticulocyte count 2.2 potassium 4.0 creatinine 0.50 EKG tracing personally reviewed by me-normal sinus rhythm with a heart rate of 111 Chest x-ray film personally reviewed by me--borderline cardiomegaly Pelvic ultrasound: Abnormally enlarged uterus and endometrium with large heterogenous ground mass seen within with an upper uterus 6.9 x 7.6 x 6.2 cm large uterine fibroid obscuring endometrium. Enlarged right ovary secondary to assist left ovary multiple small follicles seen. Assessment: -Possibly acute on chronic severe microcytic anemia from blood loss dominantly from menorrhagia secondary to large uterine fibroid and a hyperactive endometrium. Patient has a 5-year-old child and patient states she is completed to family. Other endometrial ablation and/or a hysterectomy may be indicated consideration given the severe blood loss. -Severe menorrhagia. 4 outpatient hysterectomy with possible hormone therapy in the interim and -severe iron deficiency anemia -Right ovary enlarged seconded to 4 cm cyst. -Morbid obesity BMI 40.8 -Patient does take intermittent NSAIDs in the form of Motrin for aches and pains answered endoscopy Maybe warranted. Plan: patient received 3 units of blood. IV iron being given by hematology. Patient has been offered hysterectomy by gycology.hopefully home tomorrow. Discussed with the patient.
--- NOTE | 2020-04-27 21:18 | P.CONS ---
History of Present Illness - Reason for Consult Consult date: 04/27/20 Iron deficiency anemia Requesting physician: Dudley Patel - Chief Complaint Anemia - History of Present Illness 34-year-old female with a medical history significant for obesity who presented to the hospital for evaluation of anemia. The patient was seen at her primary care physician's office where she complained of shortness of breath and weakness. She was found to be severely anemic and told to the hospital for further evaluation. On presentation to the hospital hemoglobin was found to be 2.9 currently at 6.4 status post transfusion of 3 units of packed red blood cells. Iron studies were significant for an iron level of 9 with a total iron binding capacity 499 and a saturation of 1.8%. Stool testing for occult blood was negative. On questioning the patient denied any nausea, vomiting, diarrhea or change in bowel habits. No melena, hematochezia or any signs or symptoms of GI bleeding. She does report occasional reflux for which she takes omeprazole as needed 2-3 times per week. She also uses ibuprofen frequently for back pain. She denies any prior endoscopic evaluation. She does report heavy menses which has tried to be controlled with oral contraceptives in the past unsuccessfully. Pelvic ultrasound on presentation showed an enlarged uterus with a large 7.6 cm fibroid. Review of Systems REVIEW OF SYSTEMS: CONSTITUTIONAL: Denies any fevers, chills, weight change but she had reported fatigue on presentation. CARDIOVASCULAR: Denies any chest pain, palpitations high or low blood pressures RESPIRATORY: Denies any hemoptysis or cough but reported shortness of breath worse with exertion. GENITOURINARY: No dysuria or hematuria, but the patient does report heavy bleeding during her menstrual cycle. MUSCULOSKELETAL: No weakness reported. SKIN: Denies any new rashes or lesions, jaundice or pallor. PSYCHIATRIC: Denies any depression or anxiety. NEUROLOGY: Denies headache, denies any new focal deficits. EARS/NOSE/THROAT: No recent hearing change, congestion, nasal discharge or sore throat. EYES: No pain in eyes, discharge or change in vision. GASTROINTESTINAL: As per HPI. Past Medical History Past Medical History: No Reported History Additional Past Medical History / Comment(s): Obstetric history: She had a vaginal delivery [address] Reece History of Any Multi-Drug Resistant Organisms: None Reported Past Surgical History: Back Surgery Past Anesthesia/Blood Transfusion Reactions: No Reported Reaction Past Psychological History: No Psychological Hx Reported Smoking Status: Never smoker Past Alcohol Use History: None Reported Past Drug Use History: None Reported - Past Family History Father Family Medical History: No Reported History Mother Family Medical History: No Reported History Medications and Allergies Home Medications Medication Instructions Recorded Confirmed Type Albuterol Inhaler [Ventolin Hfa 1 puff INHALATION RT-Q4H PRN 04/26/20 04/26/20 History Inhaler] Cetirizine HCl [Zyrtec] 10 mg PO HS 04/26/20 04/26/20 History Ibuprofen [Motrin Ib] 600 mg PO Q8H PRN 04/26/20 04/26/20 History Magnesium 200 mg PO HS 04/26/20 04/26/20 History Omeprazole 20 mg PO HS 04/26/20 04/26/20 History Allergies Allergy/AdvReac Type Severity Reaction Status Date / Time latex AdvReac Rash/Hives Verified 04/26/20 15:30 Physical Exam Vitals: Vital Signs Temp Pulse Pulse Resp BP BP Pulse Ox 04/27/20 08:00 98.1 F 90 18 150/88 95 04/27/20 06:14 98.9 F 76 18 147/77 96 04/27/20 02:00 98 F 98 18 158/82 98 04/27/20 01:07 99.3 F 98 18 131/78 94 L 04/27/20 00:37 99.5 F 93 18 134/74 95 04/27/20 00:27 98.7 F 92 18 132/76 95 04/27/20 00:11 98.5 F 93 18 170/95 97 04/26/20 20:39 99.1 F 95 18 165/94 97 04/26/20 20:18 98 04/26/20 20:09 98.4 F 101 H 18 163/89 97 04/26/20 20:04 99.1 F 99 18 160/92 97 04/26/20 20:00 98.2 F 96 100 18 162/93 98 04/26/20 19:59 98.2 F 87 18 161/91 98 04/26/20 19:03 98.4 F 104 H 169/99 98 04/26/20 18:25 99.8 F H 101 H 18 170/86 99 04/26/20 17:28 99.1 F 98 18 149/80 2 L 04/26/20 16:45 99.0 F 109 H 16 155/83 04/26/20 16:30 98.6 F 108 H 16 155/83 04/26/20 16:15 99.8 F H 102 H 14 158/90 100 04/26/20 16:05 99.8 F H 100 13 161/87 100 04/26/20 15:55 98 F 106 H 20 161/87 100 04/26/20 15:20 112 H 16 150/84 100 04/26/20 14:29 98.0 F 120 H 18 149/65 98 Intake and Output 04/26/20 04/27/20 04/27/20 22:59 06:59 14:59 Intake Total 310 620 480 Balance 310 620 480 Intake: Oral 480 Blood Product 310 620 Rc As-1 Unit 310 [id number] Rc Cpda-1 Unit 310 [id number] Rc Cpda-1 Unit 0 310 [id number] Other: # Voids 2 1 Weight 112.4 kg On physical examination, patient appears comfortable in no apparent distress. HEAD: Normocephalic, atraumatic. EYES: No scleral icterus. No conjunctival injection. MOUTH: No lesions, tongue midline. NECK: Trachea midline, no gross abnormalities. CHEST: Clear to auscultation with no wheezing or rhonchi appreciated. HEART: Regular rate and rhythm. ABDOMEN: Soft, obese and nontender. Bowel sounds are positive. No organomegaly. No guarding or rigidity. EXTREMITIES: No pedal edema. SKIN: No rashes, no jaundice. NEUROLOGIC: Alert and oriented x3. No focal deficits. Results CBC & Chem 7: 04/27/20 07:58 04/26/20 15:10 Labs: Abnormal Lab Results - Last 24 Hours (Table) 04/26/20 04/26/20 04/26/20 Range/Units 15:10 15:10 15:10 RBC 2.14 L (3.80-5.40) m/uL Hgb 2.9 L* (11.4-16.0) gm/dL Hct 12.2 L* (34.0-46.0) % MCV 57.0 L (80.0-100.0) fL MCH 13.3 L (25.0-35.0) pg MCHC 23.4 L (31.0-37.0) g/dL RDW 20.9 H (11.5-15.5) % Plt Count 469 H (150-450) k/uL Retic Count (0.5-2.0) % APTT (22.0-30.0) sec Carbon Dioxide 21 L (22-30) mmol/L Creatinine 0.50 L (0.52-1.04) mg/dL Glucose 113 H (74-99) mg/dL Iron (50-170) ug/dL TIBC (228-460) ug/dL % Saturation (12.00-45.00) Ferritin (10.0-291.0) ng/mL Crossmatch See Detail 04/26/20 04/26/20 04/26/20 Range/Units 15:10 15:10 15:49 RBC (3.80-5.40) m/uL Hgb (11.4-16.0) gm/dL Hct (34.0-46.0) % MCV (80.0-100.0) fL MCH (25.0-35.0) pg MCHC (31.0-37.0) g/dL RDW (11.5-15.5) % Plt Count (150-450) k/uL Retic Count 2.2 H (0.5-2.0) % APTT 17.6 L (22.0-30.0) sec Carbon Dioxide (22-30) mmol/L Creatinine (0.52-1.04) mg/dL Glucose (74-99) mg/dL Iron 9 L (50-170) ug/dL TIBC 499 H (228-460) ug/dL % Saturation 1.80 L (12.00-45.00) Ferritin 3.1 L (10.0-291.0) ng/mL Crossmatch 04/27/20 Range/Units 07:58 RBC 2.97 L (3.80-5.40) m/uL Hgb 6.4 L* D (11.4-16.0) gm/dL Hct 20.4 L (34.0-46.0) % MCV 68.6 L D (80.0-100.0) fL MCH 21.4 L (25.0-35.0) pg MCHC (31.0-37.0) g/dL RDW 27.4 H (11.5-15.5) % Plt Count (150-450) k/uL Retic Count (0.5-2.0) % APTT (22.0-30.0) sec Carbon Dioxide (22-30) mmol/L Creatinine (0.52-1.04) mg/dL Glucose (74-99) mg/dL Iron (50-170) ug/dL TIBC (228-460) ug/dL % Saturation (12.00-45.00) Ferritin (10.0-291.0) ng/mL Crossmatch Comments: Pelvic ultrasound significant for an enlarged uterus with a 7.6 cm fibroid. Assessment and Plan (1) Iron deficiency anemia Narrative/Plan: 34-year-old female presenting for evaluation after being found to be severely anemic on outpatient laboratory draw. Patient had been experiencing severe shortness of breath and was found to be extremely with hemoglobin 12.9 on lab draw after presentation to the hospital and subsequently 6.4 after transfusion of packed red blood cells. Patient's iron with a severe symptomatic iron deficiency anemia. Patient has been intolerant of oral iron and is being aggressively transfuse with IV iron by the hematology service. Patient denies any signs or symptoms of GI bleeding and had stool testing which was negative for occult blood. Patient's anemia likely related to heavy bleeding during her menstrual cycle. She is been seen by the [facility] service with plan for hysterectomy in the outpatient setting. She will also be worked up further by the hematology service after discharge. Current Visit: Yes Status: Acute Code(s): D50.9 - IRON DEFICIENCY ANEMIA, UNSPECIFIED SNOMED Code(s): 81364549 (2) GERD (gastroesophageal reflux disease) Current Visit: Yes Status: Acute Code(s): K21.9 - GASTRO-ESOPHAGEAL REFLUX DISEASE WITHOUT ESOPHAGITIS SNOMED Code(s): 208117323 (3) Fatigue Current Visit: Yes Status: Acute Code(s): R53.83 - OTHER FATIGUE SNOMED Code(s): 87296928 Plan: Supportive care Okay for diet as tolerated Continue to monitor hemoglobin and hematocrit and transfuse as needed wall scraper service and hematology service following the patient Aggressive IV supplementation of iron as per recommendations by hematology Plan at this time is for outpatient hysterectomy and continued IV iron supplementation by hematology No plan for endoscopic evaluation at this time with negative stool testing for blood and patient denied any signs or symptoms of GI bleeding, if patient has persistent anemia after hysterectomy would recommend follow-up with GI time, this plan is discussed with the patient and with all of her questions answered to her satisfaction Discussion with the patient and recommendation is to avoid NSAID use, and use Tylenol instead as directed for back pain Thank you for allowing us to participate in the care of the patient, the GI service will stand by, please call us back with any questions or concerns
[2020-04-28] MEDS: traMADol 50 MG TAB PO PRN ×2 (02:05→10:38)
[2020-04-28 03:31] LABS: Anisocytosis Marked; Basophils % (A) 0 %; Eosinophils # (A) 0.3 k/uL (0-0.7); Eosinophils % (A) 3 %; HCT 21.1 % (34.0-46.0); Hypochromasia Marked; Lymphocytes % (A) 21 %; MCH 20.9 pg (25.0-35.0); MCV 69.7 fL (80.0-100.0); Mean Platelet Volume 7.9; Microcytosis Marked; Monocytes # (A) 0.5 k/uL (0-1.0); Monocytes % (A) 5 %; Neutrophils # (A) 6.6 k/uL (1.3-7.7); Neutrophils % (A) 70 %; Platelet Count 360 k/uL (150-450); Poikilocytosis Marked; RBC 3.03 m/uL (3.80-5.40); WBC 9.4 k/uL (3.8-10.6)
[2020-04-28 03:33] VITALS: RESP 18
[2020-04-28 03:39] LABS: HGB 6.3 gm/dL (11.4-16.0); RDW 27.9 % (11.5-15.5)
[2020-04-28] MEDS: CYCLOBENZAPRINE 10 MG TAB PO PRN ×2 (04:41→12:46)
[2020-04-28] MEDS: SODIUM FERRIC GLUCONAT-SUCROSE 125 MG in SODIUM CHLORIDE 0.9% 100 ML IVPB SCH (08:49)
[2020-04-28 11:32] VITALS: BP 140/69; TEMP 98.8
[2020-04-28 13:42] VITALS: PULSE 92
--- NOTE | 2020-04-28 14:17 | P.PN ---
Subjective Progress Note Date: 04/28/20 Principal diagnosis: Severe microcytic, hypochromic anemia, secondary to menorrhagia In follow-up today patient is doing well, she can ambulate with only minimal shortness of breath, she has no symptoms of dizziness. She is being started on medications through [facility] to control menorrhagia. She received 2 doses of parenteral iron, tolerated well. Objective - Vital Signs Vital signs: Vital Signs Temp 98.8 F 04/28/20 08:00 Pulse 92 04/28/20 12:00 Resp 18 04/28/20 12:00 BP 140/69 04/28/20 08:00 Pulse Ox 97 04/28/20 12:00 Intake & Output 04/27/20 04/28/20 04/28/20 18:59 06:59 18:59 Intake Total 1020 Balance 1020 Weight 109.5 kg Intake: Oral 1020 Other: # Voids 1 1 - Constitutional General appearance: Present: cooperative, no acute distress, obese - EENT Eyes: Present: anicteric sclerae, EOMI ENT: Present: hearing grossly normal - Respiratory Details: Respirations even and unlabored at rest - Cardiovascular Details: Patient has good color to the skin despite being still pretty anemic, hemoglobin 6.3 - Integumentary Integumentary: Present: pale (Mild) - Neurologic Neurologic: Present: CNII-XII intact - Musculoskeletal Musculoskeletal: Present: strength equal bilaterally - Psychiatric Psychiatric: Present: A&O x's 3, appropriate affect, intact judgment & insight - Labs CBC & Chem 7: 04/28/20 03:00 04/26/20 15:10 Labs: Abnormal Lab Results - Last 24 Hours (Table) 04/26/20 04/26/20 04/28/20 Range/Units 15:10 15:10 03:00 RBC 3.03 L (3.80-5.40) m/uL Hgb 6.3 L* (11.4-16.0) gm/dL Hct 21.1 L (34.0-46.0) % MCV 69.7 L (80.0-100.0) fL MCH 20.9 L (25.0-35.0) pg MCHC 30.0 L (31.0-37.0) g/dL RDW 27.9 H (11.5-15.5) % RBC Folate 2,328 H (280 - 791) ng/mL Crossmatch See Detail Assessment and Plan (1) Microcytic hypochromic anemia Narrative/Plan: ObGyn with plans for hysterectomy in the future, once Hgb in a safer range. Started on progesterone to decrease menorrhagia. Agree with plan Pt intolerant to oral iron. Aggressive parenteral iron supplementation ordered. Have already confirmed patient and insurance, cleared with billing. Once patient is discharged she will be scheduled for additional doses of parenteral iron. Hematology office will contact patient with appointment dates and times. Patient told to contact the office if she has not heard from them in 5 days. Contact information given Hgb stable at 6.3 s/p 3 units PRBCs. No further transfusions at this time. Case discussed with Attending. Patient is okay for discharge from a Hematology standpoint. Pt verbalized understanding all of the above and agrees with plan. Current Visit: Yes Status: Acute Priority: High Code(s): D50.9 - IRON DEFICIENCY ANEMIA, UNSPECIFIED SNOMED Code(s): 86637017
--- NOTE | 2020-04-29 23:54 | P.DS ---
Providers Date of admission: 04/26/20 15:46 Expected date of discharge: 04/28/20 Attending physician: Dudley Patel Consults: 04/26/20 15:45 Consult Physician Urgent Consulting Provider: Mariella Deal Consult Reason/Comments: anemia w hx of heavy menses Do you want consulting provider notified?: Yes 04/26/20 15:46 Consult Physician Urgent Consulting Provider: Favian Felix Consult Reason/Comments: Severe anemia Do you want consulting provider notified?: Yes 04/26/20 22:44 Consult Physician Routine Consulting Provider: Lul Mandujano Consult Reason/Comments: Severe anemia Do you want consulting provider notified?: Yes Primary care physician: [facility] Course: Chief Complaint: Weak and tired History of presenting complaint: This is a very pleasant 34-year-old patient of Dr. Rivas. Under [place] possible history. Progressively over last few months patient noticed that she is getting more and more short of breath and weakness dizzy tired. Gets cramps in lower extremity. For quite sometime she normally has menstrual cycle lasting for at least 5-6 days. And gets thick clots. Patient also does take Motrin in termittently for different aches and pains. She was found to have a hemoglobin of 2.6. Repeat hemoglobin here was 2.9. Was ordered 3 units of blood . Patient was also received 2 units of IV iron. Hematology did not want any further blood transfusion. Patient seen by GI. Did not feel the need for any further workup. Pelvic ultrasound shows a very large fibroid. Patient is planning to do hysterectomy as she is not trying to have anymore children . In the meantime she'll take progesterone pills. Today-feeling well. Sitting up. Several questions answered to the patient and patient's cousin Dev who is a mastic floor layer. We'll plan was discussed in detail. Also discussed with stephanie from oncology. Patient return for more IV iron as an outpatient. Discussion and discharge planning more than 35 minutes Consultation: Dr. Felix from oncology Dr. Edwards from GI Dr. Deal from OB GEN Past medical history to include: Chronic menorrhagia, intermittent aches and pains in the joints Social history: Does not smoke or drink alcohol. Works at [employer]. . Has a 5-year-old son Family history: Reviewed, noncontributory to presentation Physical examination: VITAL SIGNS: White count 9.4 hemoglobin 6.3 GENERAL: planning a chair, feeling better EYES: Pupils equal. Conjunctiva pale. HEENT: External appearance of nose and ears normal, oral cavity grossly normal. NECK: JVD not raised; masses not palpable. HEART: First and second heart sounds are normal; no edema. LUNGS: Respiratory rate normal; clear to auscultation. ABDOMEN: Soft, nontender, liver spleen not palpable, no masses palpable. PSYCH: Alert and oriented x3; mood and affect normal. INVESTIGATIONS, reviewed in the clinical context: April 28: Hemoglobin 6.3 April 27: Hemoglobin 6.4 White count 7.3 hemoglobin 2.9 decreased MCV platelets 469. Reticulocyte count 2.2 potassium 4.0 creatinine 0.50 EKG tracing personally reviewed by me-normal sinus rhythm with a heart rate of 111 Chest x-ray film personally reviewed by me--borderline cardiomegaly Pelvic ultrasound: Abnormally enlarged uterus and endometrium with large heterogenous ground mass seen within with an upper uterus 6.9 x 7.6 x 6.2 cm large uterine fibroid obscuring endometrium. Enlarged right ovary secondary to assist left ovary multiple small follicles seen. Assessment: -Possibly acute on chronic severe microcytic anemia from blood loss from menorrhagia secondary to large uterine fibroid and a hyperactive endometrium. [address] In the meantime, progestin -Severe menorrhagia. 4 outpatient hysterectomy with possible hormone therapy in the interim and -severe iron deficiency anemia -Right ovary enlarged seconded to 4 cm cyst. -Morbid obesity BMI 40.8 Disposition: Home Patient Condition at Discharge: Stable Plan - Discharge Summary Discharge Rx Participant: No New Discharge Prescriptions: New Medroxyprogesterone Acetate [Provera] 5 mg PO DAILY #30 tablet Cyclobenzaprine [Flexeril] 10 mg PO Q8HR PRN #20 tab PRN Reason: Muscle Spasm Continue Omeprazole 20 mg PO HS Magnesium 200 mg PO HS Cetirizine HCl [Zyrtec] 10 mg PO HS Albuterol Inhaler [Ventolin Hfa Inhaler] 1 puff INHALATION RT-Q4H PRN PRN Reason: Shortness Of Breath Discontinued Ibuprofen [Motrin Ib] 600 mg PO Q8H PRN PRN Reason: Pain Discharge Medication List Albuterol Inhaler [Ventolin Hfa Inhaler] 1 puff INHALATION RT-Q4H PRN 04/26/20 [History] Cetirizine HCl [Zyrtec] 10 mg PO HS 04/26/20 [History] Magnesium 200 mg PO HS 04/26/20 [History] Omeprazole 20 mg PO HS 04/26/20 [History] Cyclobenzaprine [Flexeril] 10 mg PO Q8HR PRN #20 tab 04/28/20 [Rx] Medroxyprogesterone Acetate [Provera] 5 mg PO DAILY #30 tablet 04/28/20 [Rx] Follow up Appointment(s)/Referral(s): Favian Felix MD [STAFF PHYSICIAN] - 1 Week (Office will call to set up your follow up appointment) Brian Rivas MD [Primary Care Provider] - 04/30/20 8:00 am Mariella Deal DO [Doctor of Osteopathic Medicine] - 05/06/20 3:15 pm Patient Instructions/Handouts: Uterine Fibroids (GEN), Anemia (DC), Hysterectomy (DC), Hysterectomy (GEN) Discharge Disposition: HOME SELF-CARE
== END 2020-04-28 15:35 | disposition home or self-care (01) | DRG 760 ==
LOC: EC 14:28 → 3SCARD 15:46
PROVIDERS: ADMIT Hospitalist; ATTEND Hospitalist
PROC: 30233N1 Transfusion of Nonautologous Red Blood Cells into Peripheral Vein, Percutaneous Approach (ICD-10-PCS; principal; 2020-04-26)
DX: D25.9 Leiomyoma of uterus, unspecified (principal); Z68.41 Body mass index [BMI] 40.0-44.9, adult; D62 Acute posthemorrhagic anemia; E66.01 Morbid (severe) obesity due to excess calories; K21.9 Gastro-esophageal reflux disease without esophagitis; J45.909 Unspecified asthma, uncomplicated; D53.9 Nutritional anemia, unspecified; N83.201 Unspecified ovarian cyst, right side; N92.0 Excessive and frequent menstruation with regular cycle; Z90.710 Acquired absence of both cervix and uterus; Z91.040 Latex allergy status; Z98.890 Other specified postprocedural states; Z79.899 Other long term (current) drug therapy
CPT/HCPCS: 36415; 36430; 71046; 76856; 80053; 82272; 82607; 82728; 82747; 83540; 83550; 83655; 84443; 84484; 85025; 85045; 85610; 85730; 86850; 86900; 86901; 86920; 93005; 94760; 99291

== ENCOUNTER → 2020-04-26 | Outpatient (CLI) | payer MEDICAID ==
[2020-04-26 12:50] LABS: Anisocytosis Moderate; Hypochromasia Marked; MCH 14.1 pg (25.0-35.0); MCHC 24.2 g/dL (31.0-37.0); Microcytosis Marked; Platelet Count 434 k/uL (150-450); RBC 1.97 m/uL (3.80-5.40); RDW 20.9 % (11.5-15.5)
[2020-04-26 13:10] LABS: HCT 11.4 % (34.0-46.0); HGB 2.8 gm/dL (11.4-16.0)
[2020-04-26 21:09] LABS: T4, Free (Free Thyroxine) 1.2 ng/dL (0.80-1.80)
[2020-04-26 21:22] LABS: % Iron Saturation 1.73 (12.00-45.00); African American GFR (CKD) 145.3 (60.0-200.0); Albumin 3.9 g/dL (3.80-4.90); Albumin/Globulin Ratio 1.7 (1.60-3.17); Anion Gap 8.8 mmol/L (4.00-12.00); Calcium 8.6 mg/dL (8.7-10.3); Carbon Dioxide 24.2 mmol/L (21.6-31.8); Ferritin 2.6 ng/mL (10.0-291.0); Folate, Serum 13.8 ng/mL; Globulin 2.3 g/dL (1.6-3.3); Non-African American GFR(CKD) 125.4 (60.0-200.0); Total Bilirubin 0.4 mg/dL (0.2-1.2); Total Protein 6.2 g/dL (6.2-8.2)
== END | disposition home or self-care (01) ==
LOC: LABWHC1 11:00
PROVIDERS: ATTEND Family Medicine
DX: D50.9 Iron deficiency anemia, unspecified (principal); R53.83 Other fatigue
CPT/HCPCS: 36415; 80053; 82607; 82728; 82746; 83540; 83550; 84439; 84443; 85027

== ENCOUNTER → 2020-05-18 | Outpatient (CLI) | payer MEDICAID ==
[2020-05-18 15:13] LABS: African American GFR (CKD) 145.3 (60.0-200.0); Albumin 4.7 g/dL (3.80-4.90); Albumin/Globulin Ratio 2.14 (1.60-3.17); Anion Gap 8.7 mmol/L (4.00-12.00); Calcium 9.3 mg/dL (8.7-10.3); Carbon Dioxide 24.3 mmol/L (21.6-31.8); Chol/HDL Ratio 5.15; Globulin 2.2 g/dL (1.6-3.3); LDL Cholesterol,Calculated 68.8 mg/dL (0.0-131.0); Non-African American GFR(CKD) 125.4 (60.0-200.0); Potassium 4.2 mmol/L (3.5-5.5); Total Bilirubin 0.3 mg/dL (0.2-1.2); Total Protein 6.9 g/dL (6.2-8.2); VLDL Calculation 72.2 mg/dL (5.00-40.00)
[2020-05-18 15:34] LABS: Anisocytosis (M) 3+; HCT 37.8 % (37.2-46.3); Hypochromasia (M) 2+; MCH 24.5 pg (27.0-32.0); MCHC 29.1 g/dL (32.0-37.0); MCV 84.2 fL (80.0-97.0); Mean Platelet Volume 9.5 fL (9.5-12.2); Microcytosis (M) 2+; Platelet Count 375 X 10*3/uL (140-440); RBC 4.49 X 10*6/uL (4.10-5.20); Spherocytes 2+; WBC 5.96 X 10*3/uL (4.50-10.00)
== END | disposition home or self-care (01) ==
LOC: LABWHC1 08:48
PROVIDERS: ATTEND Family Medicine
DX: Z00.00 Encounter for general adult medical examination without abnormal findings (principal)
CPT/HCPCS: 36415; 80053; 80061; 85027

== ENCOUNTER → 2020-06-16 | Outpatient (CLI) | payer MEDICAID ==
[2020-06-16 10:22] LABS: Anisocytosis Moderate; Basophils % (A) 0 %; Eosinophils # (A) 0.1 k/uL (0-0.7); Eosinophils % (A) 2 %; HCT 42.9 % (34.0-46.0); Hypochromasia Slight; Lymphocytes # (A) 2.4 k/uL (1.0-4.8); Lymphocytes % (A) 31 %; MCH 28.2 pg (25.0-35.0); MCHC 32.7 g/dL (31.0-37.0); Mean Platelet Volume 7.1; Microcytosis Moderate; Monocytes # (A) 0.4 k/uL (0-1.0); Monocytes % (A) 5 %; Neutrophils # (A) 4.7 k/uL (1.3-7.7); Neutrophils % (A) 60 %; Platelet Count 320 k/uL (150-450); Poikilocytosis Slight; RBC 4.98 m/uL (3.80-5.40); RDW 22.3 % (11.5-15.5); WBC 7.7 k/uL (3.8-10.6)
[2020-06-16 10:29] LABS: MCV 86.2 fL (80.0-100.0)
[2020-06-16 10:33] LABS: Amorphous Sediment,Urine Rare /hpf; Appearance,Urine Cloudy (Clear); Bacteria,Urine Rare /hpf; Bilirubin,Urine Negative (Negative); Blood,Urine Large (Negative); Color,Urine Yellow; Glucose,Urine (UA) Negative (Negative); Ketones,Urine Negative (Negative); Leukocyte Esterase,Urine Small (Negative); Mucus,Urine Occasional /hpf; Nitrite,Urine Negative (Negative); Protein,Urine Trace (Negative); RBC,Urine 18 /hpf (0-5); Specific Gravity,Urine 1.016 (1.001-1.035); Squamous Epithelial Cell,Urine 8 /hpf (0-4); Urobilinogen,Urine <2.0 mg/dL (<2.0); WBC,Urine 5 /hpf (0-5)
[2020-06-16 10:42] LABS: Partial Thromboplastin Time 23.9 sec (22.0-30.0); Prothrombin Time 10.9 sec (9.0-12.0)
[2020-06-16 13:03] LABS: ALT 121 U/L (4-34); AST 57 U/L (14-36); African American GFR (CKD) >90 (>60 ml/min/1.73 sqM); Albumin 4.7 g/dL (3.5-5.0); Alkaline Phosphatase 114 U/L (38-126); Anion Gap 12 mmol/L; Blood Urea Nitrogen 13 mg/dL (7-17); Calcium 9.9 mg/dL (8.4-10.2); Carbon Dioxide 25 mmol/L (22-30); Chloride 101 mmol/L (98-107); Glucose 91 mg/dL (74-99); Non-African American GFR(CKD) >90 (>60 ml/min/1.73 sqM); Sodium 138 mmol/L (137-145); Total Bilirubin 0.4 mg/dL (0.2-1.3); Total Protein 7.9 g/dL (6.3-8.2)
[2020-06-16 13:23] LABS: Potassium 4.5 mmol/L (3.5-5.1)
== END | disposition home or self-care (01) ==
LOC: LABPAT 08:54
PROVIDERS: ATTEND Obstetrics & Gynecology
DX: Z01.812 Encounter for preprocedural laboratory examination (principal)
CPT/HCPCS: 36415; 80053; 81001; 85025; 85610; 85730

== ENCOUNTER 2020-06-24 07:32 | Inpatient (IN) | payer MEDICAID ==
[2020-06-17 14:54] VITALS: BMI 38.1
--- NOTE | 2020-06-23 16:23 | P.HPOB ---
History of Present Illness H&P Date: 06/23/20 Chief Complaint: menorrhagia 34 year old presents for [facility] BS with davinci and diagnostic cystoscopy. Patient has a fibroid uterus and menorrhagia that led to severe anemia. She has a 14cm uterus with a 7cm fibroid encroaching the endometrium. Review of Systems All systems: negative Constitutional: Denies chills, Denies fever Eyes: denies blurred vision, denies pain Ears, nose, mouth and throat: Denies headache, Denies sore throat Cardiovascular: Denies chest pain, Denies shortness of breath Respiratory: Denies cough Gastrointestinal: Denies abdominal pain, Denies diarrhea, Denies nausea, Denies vomiting Genitourinary: Denies dysuria, Denies hematuria Musculoskeletal: Denies myalgias Integumentary: Denies pruritus, Denies rash Neurological: Denies numbness, Denies weakness Psychiatric: Denies anxiety, Denies depression Endocrine: Denies fatigue, Denies weight change Past Medical History Past Medical History: GERD/Reflux Additional Past Medical History / Comment(s): anemia adm mph 04/26/20 hgb 2.9 received 3 units PRBC has received iron infusions. heavy vaginally bleeding. back pain-back surgery continues to experience residual nerve pain radiating to lt leg History of Any Multi-Drug Resistant Organisms: None Reported Past Surgical History: Back Surgery Additional Past Surgical History / Comment(s): laminectomy L5-S1. wisdom teeth Past Anesthesia/Blood Transfusion Reactions: Previous Problems w/ Anesthesia, Motion Sickness Additional Past Anesthesia/Blood Transfusion Reaction / Comment(s): 3 units PRBC 05/06 without reaction. after back surgery became very disoriented and angry with panic and anxiety Smoking Status: Never smoker - Past Family History Father Family Medical History: No Reported History Mother Family Medical History: Blood Disorder Additional Family Medical History / Comment(s): anemia Brother(s) Family Medical History: Blood Disorder Additional Family Medical History / Comment(s): anemia Medications and Allergies Home Medications Medication Instructions Recorded Confirmed Type Albuterol Inhaler [Ventolin Hfa 1 puff INHALATION RT-Q4H PRN 04/26/20 06/17/20 History Inhaler] Cetirizine HCl [Zyrtec] 10 mg PO HS 04/26/20 06/17/20 History Omeprazole 20 mg PO HS 04/26/20 06/17/20 History Cyclobenzaprine [Flexeril] 10 mg PO Q8HR PRN #20 tab 04/28/20 06/17/20 Rx Citalopram Hydrobromide [CeleXA] 20 mg PO HS 06/17/20 06/17/20 History Medroxyprogesterone Acetate 10 mg PO HS 06/17/20 06/17/20 History [Provera] Allergies Allergy/AdvReac Type Severity Reaction Status Date / Time hydrocodone [From Vicodin] Allergy Nausea & Verified 06/17/20 14:40 Vomiting acetaminophen [From Vicodin] AdvReac Nausea & Verified 06/17/20 14:41 Vomiting latex AdvReac Rash/Hives Verified 06/17/20 14:30 Exam Osteopathic Statement: *. No significant issues noted on an osteopathic structural exam other than those noted in the History and Physical/Consult. HEart: RRR Lungs: CTAB Abdomen: soft, nontender Extremeties: neg jacqueline's Assessment and Plan (1) Menorrhagia Status: Acute Code(s): N92.0 - EXCESSIVE AND FREQUENT MENSTRUATION WITH REGULAR CYCLE SNOMED Code(s): 152401012 (2) Fibroid uterus Status: Acute Code(s): D25.9 - LEIOMYOMA OF UTERUS, UNSPECIFIED SNOMED Code(s): 47736781 (3) Iron deficiency anemia Status: Acute Code(s): D50.9 - IRON DEFICIENCY ANEMIA, UNSPECIFIED SNOMED Code(s): 52953359 Plan: 1. Total laparoscopic hysterectomy bilateral salpingectomy with da rhea, diagnostic cystoscopy, possible LOURDES BSO
[~2020-06-24 07:32] MED LIST: DEXAMETHASONE SOD PHOSPHATE 4 MG/ML 1 ML VIAL IV ONE; LIDOCAINE 1% (10MG/ML) FOR IV START INTRADERMA PRN; ONDANSETRON 4 MG/2 ML VIAL IVP ONE
[2020-06-24] MEDS: LACTATED RINGERS 1,000 ML IV SCH ×2 (08:13→18:05)
[2020-06-24] MEDS ORDERED: SCOPOLAMINE 1.5MG/72HR PATCH TRANSDERM ONE (08:13)
[2020-06-24] MEDS ORDERED: ONDANSETRON 4 MG/2 ML VIAL ONE (08:15)
[2020-06-24] MEDS ORDERED: MIDAZOLAM 2 MG/2 ML VIAL IVP ONE (08:52)
[2020-06-24] MEDS ORDERED: ROCURONIUM 10 MG/ML (5 ML VIAL) IV ONE (09:05)
[2020-06-24] MEDS ORDERED: PROPOFOL 10 MG/ML 20 ML VIAL IV ONE (09:05)
[2020-06-24] MEDS ORDERED: HYDROmorphone (PF) 1 MG/ML ONE (09:05)
[2020-06-24] MEDS ORDERED: GLYCOPYRROLATE 0.2 MG/ML 2 ML VIAL ONE (09:05)
[2020-06-24] MEDS ORDERED: SUCCINYLCHOLINE CHLORIDE 100 MG/5 ML SYR IV ONE (09:05)
[2020-06-24] MEDS ORDERED: ROPIVACAINE 5 MG/ML 30 ML VIAL ONE (09:05)
[2020-06-24] MEDS ORDERED: NEOSTIGMINE 1 MG/ML 10 ML VIAL ONE (09:05)
[2020-06-24] MEDS ORDERED: LIDOCAINE 1% INJ 10MG/ML (20 ML MDV) ONE (09:05)
[2020-06-24] MEDS ORDERED: MIDAZOLAM 2 MG/2 ML VIAL ONE (09:05)
[2020-06-24] MEDS ORDERED: fentaNYL (PF) 50 MCG/ML 2 ML AMP ONE (09:05)
[2020-06-24] MEDS ORDERED: PHENYLEPHRINE-0.9% NACL SYG 1,000 MCG/10 ML SYRINGE ONE (09:05)
[2020-06-24] MEDS ORDERED: BUPIVACAINE (PF) 0.25% 30 ML VIAL SQ ONE (09:09)
[2020-06-24] MEDS ORDERED: LACTATED RINGERS 1,000 ML IV ONE ×2 (09:57→11:08)
--- NOTE | 2020-06-24 11:40 | XR ---
KUB HISTORY: Incorrect needle count Frontal KUB submitted. There is no radiopaque foreign body. No evident bowel obstruction or pneumoperitoneum. Subcutaneous t issues outside of the abdominal wall musculature laterally are not entirely included on the exam. Princess g bases are not included on exam. IMPRESSION: No radiopaque foreign body with limitations as described.
[2020-06-24] MEDS ORDERED: METOCLOPRAMIDE 5 MG/ML 2 ML VIAL IVP PRN (11:56)
[2020-06-24] MEDS ORDERED: ONDANSETRON 4 MG/2 ML VIAL IVP PRN (11:56)
[2020-06-24] MEDS ORDERED: SIMETHICONE 80 MG CHEWABLE PO PRN (11:56)
[2020-06-24] MEDS ORDERED: Acetaminophen-Codeine 300-30mg TAB PO PRN ×2 (11:56)
[2020-06-24] MEDS ORDERED: diphenhydrAMINE 50 MG/ML 1 ML VIAL IVP PRN (11:56)
[2020-06-24] MEDS ORDERED: ZOLPIDEM 5 MG TAB PO PRN (11:56)
--- NOTE | 2020-06-24 11:56 | P.OP ---
Date of Procedure: 06/24/20 Preoperative Diagnosis: 1. Menorrhagia 2. fibroid uterus Postoperative Diagnosis: 1. Menorrhagia 2. fibroid uterus Procedure(s) Performed: Total Abdominal Hysterectomy Anesthesia: PARAMJIT Surgeon: Mariella Deal [employer] Driver #1: Miah Parson Estimated Blood Loss (ml): 450 IV fluids (ml): 1,700 Urine output (ml): 400 Pathology: other (uterus and cervix) Condition: stable Disposition: PACU Operative Findings: large fibroid uterus. normal tubes and ovaries. Description of Procedure: Patient taken the operating room where general anesthesia was obtained without difficulty. She is prepped and draped in normal sterile fashion dorsal lithotomy position, legs placed in the Maurice stirrups. Weighted speculum placed in the vagina and the anterior lip the cervix was grasped with single-tooth tenaculum. The uterus sounded to 15 cm and the cervix diameter was 4 cm. The appropriate manipulator tip and ring were placed on the Lisa manipulator. The Lisa manipulator was then placed in the uterus. Doe catheter was also placed. Attention was then turned to the abdomen and gloves were changed. A 5 mm supraumbilical incision was made the scalpel and a 5 mm optical trocar was pl aced under direct visualization. Survey of the pelvis revealed a very large uterus that was mobile but very difficult to see this side in the back of. Decision was made to convert to open total abdominal hysterectomy. The patient was redraped and reprepped in sterile fashion in the dorsal supine position. Low transverse incision was made the scalpel carried through to underlying layer fascia with the scalpel. Fascia was incised in midline and carried bilaterally with Mondragon scissors. Superior aspect of the fascial incision was grasped with Guilford clamps elevated and the underlying rectus muscles dissected off with the Mayos. Attention was then turned to the inferior aspect of same incision which in a similar fashion was grasped tented up and the rectus muscles were taken off the fascia with the Mayos. The rectus muscles were the midline and the peritoneum was identified tented up and entered sharply with the scalpel. Incision was extended superiorly and inferiorly with good visualization of the bladder. Self-retaining retractor was placed and the bladder blade was also placed. The bowels were packed away with moist laparotomy sponges. The uterus was delivered through the incision and Trish clamps were placed on the cornea. Any cancer used to clamp cut and suture ligate the round ligament and the utero ovarian ligament and the fallopian tube. This was done on both sides. The broad ligament was clamped cut and suture ligated on both sides in a stepwise fashion down to the uterine artery. Uterine arteries were clamped and suture ligated on both sides. Bladder flap was created and pushed down with a sponge off the cervix. The uterosacral ligaments and cardinal ligaments were also clamped cut and suture ligated. Once the level of the cervicovaginal junction was reached the Ester was used to clamp across this cut and suture ligated. Uterus and cervix were amputated off the vagina. The vaginal cuff was closed with 0 Vicryl in a running locked fashion. Pelvis was copiously irrigated. Hemostasis was achieved but there was a little bit of oozing down by the cuff and surgical's note was placed. Hemostasis assured. All instrument removed fro m the abdomen. The peritoneum was reapproximated with 2-0 Vicryl in a running fashion. The fascia was reapproximated with 0 Vicryl in a running fashion. Subcu tissues closed with 3-0 Vicryl in a running fashion. The skin was closed with doron. Patient tolerated procedure well. The instruments counts were correct 2. The needle counts were off by 1. X-ray was taken of the patient's pelvis and was negative for any foreign bodies. She was taken to recovery in stable condition.
[2020-06-24] MEDS ORDERED: HYDROmorphone 0.5 MG/0.5 ML SYRINGE IVP ONE (12:10)
[2020-06-24] MEDS: KETOROLAC 15 MG/ML 1 ML VIAL IVP PRN ×2 (12:13→18:02)
--- NOTE | 2020-06-24 17:49 | P.PN ---
Progress Note - Text Progress Note Date: 06/24/20 I was informed the patient's had some bloody serosanguineous drainage from her winston-pad. Vital signs are stable with the exception of some mild tachycardia which she's had some surgery. Blood pressures are good. Examination of. Pad shows some dark red blood mixed with serous fluid most likely some mild bleeding from the vaginal cuff. Review of the operative note indicates she did have some bleeding in this area. At this point it appears to be a insignificant amount, however we'll continue to follow closely. Patient does have a CBC ordered for 6 AM tomorrow morning. I did discuss findings with the patient and her .
[2020-06-24] MEDS: SENNOSIDES-DOCUSATE SODIUM 1 EACH TAB PO SCH (21:12)
[2020-06-24] MEDS: ACETAMINOPHEN TAB 325 MG TAB PO PRN (21:30)
[2020-06-25] MEDS: KETOROLAC 15 MG/ML 1 ML VIAL IVP PRN (00:10)
[2020-06-25 06:34] LABS: Anisocytosis Moderate; Basophils % (A) 0 %; Eosinophils # (A) 0.1 k/uL (0-0.7); Eosinophils % (A) 1 %; HCT 27.7 % (34.0-46.0); Hypochromasia Slight; Lymphocytes % (A) 21 %; MCH 28.5 pg (25.0-35.0); MCHC 32.4 g/dL (31.0-37.0); MCV 88.1 fL (80.0-100.0); Microcytosis Slight; Monocytes # (A) 0.8 k/uL (0-1.0); Monocytes % (A) 9 %; Neutrophils # (A) 6.2 k/uL (1.3-7.7); Neutrophils % (A) 68 %; Platelet Count 392 k/uL (150-450); RBC 3.15 m/uL (3.80-5.40); RDW 21.2 % (11.5-15.5); WBC 9.1 k/uL (3.8-10.6)
[2020-06-25] MEDS: ACETAMINOPHEN TAB 325 MG TAB PO PRN ×2 (06:40→14:25)
--- NOTE | 2020-06-25 08:31 | P.PN ---
Progress Note - Text Progress Note Date: 06/25/20 Patient seen and examined at bedside. Her vaginal bleeding is almost completely resolved. She denies nausea, vomiting, chest pain, shortness of breath or any calf pain. Her pain is well-controlled. She is passing flatus and tolerating regular diet, ambulating voiding without difficulty. Vital signs stable Heart regular rate and rhythm Lungs clear station bilaterally Abdomen: Soft, nontender, incisions are clean, dry, intact. Extremities: Negative Homans sign Assessment 1 status post total abdominal hysterectomy postop day #1 Plan 1 increase ambulation 2. By mouth pain medication 3. Regular diet
--- NOTE | 2020-06-25 08:51 | P.ANPRN ---
Procedure Note - Anesthesia - Nerve Block Performed Bilateral Erector Spinae Single Time Out Performed: Yes Date of Procedure: 06/24/20 Procedure Start Time: 08:50 Procedure Stop Time: 09:00 Location of Patient: PreOp Indication: Acute Post-Operative Pain, Requested by Surgeon Sedation Type: Sedate with meaningful contact maintained Preparation: Sterile Prep Position: Prone Needle Types: Pajunk Needle Gauge: 21 Ultrasound used to visualize needle placement: Yes Ultrasound used to observe medication spread: Yes Blood Aspirated: No Pain Paresthesia on Injection Noted: No Resistance on Injection: Normal Image Stored and Saved: Yes Events: Uneventful and Well Tolerated (ropi .25% 30cc bilaterally at l2)
[2020-06-25] MEDS: IBUPROFEN 600 MG TAB PO PRN ×2 (10:53→19:15)
[2020-06-25] MEDS ORDERED: ACETAMINOPHEN TAB 325 MG TAB PO PRN (11:57)
[2020-06-25] MEDS: SENNOSIDES-DOCUSATE SODIUM 1 EACH TAB PO SCH ×2 (13:09→20:47)
[2020-06-25] MEDS ORDERED: CITALOPRAM HYDROBROMIDE 20 MG TAB PO SCH (21:00)
[2020-06-26] MEDS: IBUPROFEN 600 MG TAB PO PRN (05:42)
[2020-06-26 08:06] VITALS: BP 132/75; PULSE 98; RESP 18; TEMP 97.9
--- NOTE | 2020-06-26 08:51 | P.DS ---
Providers Date of admission: 06/24/20 11:48 Expected date of discharge: 06/26/20 Attending physician: Mariella Deal Primary care physician: [facility] Course: Patient is doing very well postop day 2. She is ambulating, voiding and tolerating her diet. She voices no complaints. Vital signs are stable and afebrile. Heart regular, lungs clear, extremities without pain. Abdomen soft incisions clean dry and intact. She is passing flatus. We'll plan discharged home today. She'll follow up with Dr. Deal Sunday or Sunday for staple removal prescription for Tylenol 3 and Motrin for her to her pharmacy. Othe rwise all questions are answered for her and she is stable for discharge this time. Patient Condition at Discharge: Good Plan - Discharge Summary Discharge Rx Participant: No New Discharge Prescriptions: New Acetaminophen-Codeine 300-30mg [Tylenol #3] 1 tab PO Q4H PRN #30 tablet PRN Reason: Pain No Action Omeprazole 20 mg PO HS Cetirizine HCl [Zyrtec] 10 mg PO HS Albuterol Inhaler [Ventolin Hfa Inhaler] 1 puff INHALATION RT-Q4H PRN PRN Reason: Shortness Of Breath Cyclobenzaprine [Flexeril] 10 mg PO Q8HR PRN #20 tab PRN Reason: Muscle Spasm Citalopram Hydrobromide [CeleXA] 20 mg PO HS Medroxyprogesterone Acetate [Provera] 10 mg PO HS Discharge Medication List Albuterol Inhaler [Ventolin Hfa Inhaler] 1 puff INHALATION RT-Q4H PRN 04/26/20 [History] Cetirizine HCl [Zyrtec] 10 mg PO HS 04/26/20 [History] Omeprazole 20 mg PO HS 04/26/20 [History] Cyclobenzaprine [Flexeril] 10 mg PO Q8HR PRN #20 tab 04/28/20 [Rx] Citalopram Hydrobromide [CeleXA] 20 mg PO HS 06/17/20 [History] Medroxyprogesterone Acetate [Provera] 10 mg PO HS 06/17/20 [History] Acetaminophen-Codeine 300-30mg [Tylenol #3] 1 tab PO Q4H PRN #30 tablet 06/26/20 [Rx] Follow up Appointment(s)/Referral(s): Mariella Deal DO [Doctor of Osteopathic Medicine] - 1-2 Days Activity/Diet/Wound Care/Special Instructions: No heavy lifting, limit stairs and driving, and pelvic rest. If any high tempe ratures, heavy bleeding, or severe pain call my office Discharge Disposition: HOME SELF-CARE
== END 2020-06-26 09:35 | disposition home or self-care (01) | DRG 743 ==
LOC: OR 07:32 → 4FBP 11:48
PROVIDERS: ADMIT Obstetrics & Gynecology; ATTEND Obstetrics & Gynecology
PROC: 0UT90ZZ Resection of Uterus, Open Approach (ICD-10-PCS; principal; 2020-06-24 08:55)
PROC: 0UJD4ZZ Inspection of Uterus and Cervix, Percutaneous Endoscopic Approach (ICD-10-PCS; 2020-06-24 08:55)
DX: D25.9 Leiomyoma of uterus, unspecified (principal); N92.0 Excessive and frequent menstruation with regular cycle; D50.9 Iron deficiency anemia, unspecified; K21.9 Gastro-esophageal reflux disease without esophagitis; R00.0 Tachycardia, unspecified; F32.9 Major depressive disorder, single episode, unspecified; Z53.31 Laparoscopic surgical procedure converted to open procedure; Z79.899 Other long term (current) drug therapy; Z98.890 Other specified postprocedural states; Z88.5 Allergy status to narcotic agent; Z88.6 Allergy status to analgesic agent; Z91.040 Latex allergy status; Z83.2 Family history of diseases of the blood and blood-forming organs and certain disorders involving the immune mechanism
CPT/HCPCS: 36415; 74018; 76942; 81025; 85025; 86850; 86900; 86901; 88307

== ENCOUNTER → 2020-07-16 | Outpatient (CLI) | payer MEDICAID ==
--- NOTE | 2020-07-16 12:09 | US ---
EXAMINATION TYPE: US abdomen limited DATE OF EXAM: 07/16/2020 COMPARISON: NONE CLINICAL HISTORY: 34-year-old female R94.5 Abnormal Liver function test. TECHNIQUE: Multiple sonographic images of the right upper quadrant are obtained. FINDINGS: EXAM MEASUREMENTS: Liver Length: 16.3 cm Gallbladder Wall: 0.3 cm CBD: 0.5 cm Right Kidney: 11.2 x 5.3 x 5.0 cm Pancreas: The visualized pancreatic body shows no gross abnormality. Suboptimal visualization of the pancreatic head and tail due to shadowing from bowel gas. Liver: wnl Gallbladder: No stones seen Evidence for sonographic Méndez's sign: No CBD: wnl Right Kidney: No hydronephrosis. IMPRESSION: Limited visualization of the pancreatic head and tail. Otherwise, unremarkable sonographic examinatio n of the right upper quadrant. No gallstones or biliary ductal dilatation.
== END | disposition home or self-care (01) ==
LOC: RADUSWWP 08:25
PROVIDERS: ATTEND Internal Medicine Hematology & Oncology
DX: R94.5 Abnormal results of liver function studies (principal)
CPT/HCPCS: 76705

== ENCOUNTER → 2020-09-22 | Outpatient (CLI) | payer MEDICAID ==
[2020-09-22 16:18] LABS: Hepatitis A Antibody IgM Non-Reactive (Non-Reactive); Hepatitis B Core IgM Non-Reactive (Non-Reactive); Hepatitis B Surface Antigen Non-Reactive (Non-Reactive); Hepatitis C IgG Antibody Non-Reactive (Non-Reactive)
[2020-09-22 17:05] LABS: ALT 42 U/L (8-44); AST 28 U/L (13-35); Albumin/Globulin Ratio 1.53 (1.60-3.17); Alkaline Phosphatase 113 U/L (41-126); Bilirubin, Conjugated <0.20 mg/dL (0.20-0.40); Total Bilirubin 0.3 mg/dL (0.3-1.2); Total Protein 7.6 g/dL (6.2-8.2)
== END | disposition home or self-care (01) ==
LOC: LABWHC1 09:33
PROVIDERS: ATTEND Physician Assistant
DX: R74.01 Elevation of levels of liver transaminase levels (principal)
CPT/HCPCS: 36415; 80074; 80076

== ENCOUNTER → 2021-08-12 | Outpatient (CLI) | payer MEDICAID ==
[2021-08-12 14:24] LABS: Basophils # (A) 0.03 X 10*3/uL (0.00-0.10); Basophils % (A) 0.4 %; Eosinophils # (A) 0.07 X 10*3/uL (0.04-0.35); Eosinophils % (A) 0.9 %; HGB 13.8 g/dL (12.0-15.0); Immature Grans, Automated 0.4 %; Lymphocytes % (A) 23.3 %; MCH 28.7 pg (27.0-32.0); MCHC 32.1 g/dL (32.0-37.0); MCV 89.4 fL (80.0-97.0); Mean Platelet Volume 10.7 fL (9.5-12.2); Monocytes # (A) 0.68 X 10*3/uL (0.20-1.00); Monocytes % (A) 8.3 %; NRBC Per 100 WBC 0 /100 WBCS (0.0-0.0); Neutrophils # (A) 5.45 X 10*3/uL (1.80-7.70); Neutrophils % (A) 66.7 %; Platelet Count 277 X 10*3/uL (140-440); RBC 4.81 X 10*6/uL (4.10-5.20); RDW 12.1 % (11.5-14.5); WBC 8.16 X 10*3/uL (4.50-10.00)
[2021-08-12 14:53] LABS: T4, Free (Free Thyroxine) 1.06 ng/dL (0.800-1.800)
== END | disposition home or self-care (01) ==
LOC: LABWHC1 09:39
PROVIDERS: ATTEND Family Medicine
DX: D64.9 Anemia, unspecified (principal); R63.5 Abnormal weight gain
CPT/HCPCS: 36415; 84439; 84443; 84481; 85025

== ENCOUNTER → 2022-02-07 | Outpatient (CLI) | payer MEDICAID ==
[2022-02-07 14:32] LABS: Basophils # (A) 0.03 X 10*3/uL (0.00-0.10); Basophils % (A) 0.4 %; Eosinophils # (A) 0.11 X 10*3/uL (0.04-0.35); Eosinophils % (A) 1.5 %; HGB 14.6 g/dL (12.0-15.0); Immature Grans, Automated 0.3 %; Lymphocytes # (A) 2.13 X 10*3/uL (0.90-5.00); Lymphocytes % (A) 28.9 %; MCV 85.3 fL (80.0-97.0); Mean Platelet Volume 10.4 fL (9.5-12.2); Monocytes # (A) 0.62 X 10*3/uL (0.20-1.00); Monocytes % (A) 8.4 %; NRBC Per 100 WBC 0 /100 WBCS (0.0-0.0); Neutrophils # (A) 4.47 X 10*3/uL (1.80-7.70); Neutrophils % (A) 60.5 %; Platelet Count 286 X 10*3/uL (140-440); RBC 5.04 X 10*6/uL (4.10-5.20); RDW 12.3 % (11.5-14.5); WBC 7.38 X 10*3/uL (4.50-10.00)
[2022-02-07 17:58] LABS: ALT 32 U/L (8-44); AST 28 U/L (13-35); African American GFR (CKD) 143.3 (60.0-200.0); Albumin 4.4 g/dL (3.8-4.9); Albumin/Globulin Ratio 1.52 (1.60-3.17); Alkaline Phosphatase 101 U/L (41-126); Blood Urea Nitrogen 11.2 mg/dL (9.0-27.0); Calcium 9.4 mg/dL (8.7-10.3); Carbon Dioxide 21.6 mmol/L (20.0-27.5); Chloride 101 mmol/L (96-109); Chol/HDL Ratio 5.59 Ratio; Globulin 2.9 g/dL (1.6-3.3); Glucose 85 mg/dL (70-110); LDL Cholesterol,Calculated 105.8 mg/dL (0.0-131.0); Non-African American GFR(CKD) 123.6 (60.0-200.0); Potassium 4.3 mmol/L (3.5-5.5); Sodium 139 mmol/L (135-145); Total Protein 7.3 g/dL (6.2-8.2)
== END | disposition home or self-care (01) ==
LOC: LABWHC1 08:39
PROVIDERS: ATTEND Family Medicine
DX: Z00.00 Encounter for general adult medical examination without abnormal findings (principal)
CPT/HCPCS: 36415; 80053; 80061; 85025

== ENCOUNTER 2022-04-06 09:48 | Emergency (ER) | payer MEDICAID ==
[2022-04-06 09:53] VITALS: RESP 18; TEMP 97.6
[2022-04-06] MEDS ORDERED: FAMOTIDINE 20 MG TAB PO STA (10:11)
[2022-04-06] MEDS ORDERED: diphenhydrAMINE 50 MG/ML 1 ML VIAL IM STA (10:11)
--- NOTE | 2022-04-06 10:23 | ED ---
Allergic Reaction HPI - General Chief complaint: Allergic Reaction Stated complaint: Allergic Reaction Time Seen by Provider: 04/06/22 09:56 Source: patient, RN notes reviewed Mode of arrival: ambulatory Limitations: no limitations - History of Present Illness Initial Comments: This is a 36-year-old female who presents to the emergency department for an allergic reaction. States that she was being treated for an upper respiratory infection earlier this month. She was initially put on a course of steroids with a Z-Sunil. She subsequently had no relief, and afterwards was given Bactrim with another course of steroids. Shortly after finishing the Bactrim, she started to develop hives all over her body. She changed her sheets and tried to think of any other possible causes, however she did not come up with any. She spoke with her primary care provider, who advised that this was most likely a delayed reaction to the Bactrim. When she woke up this morning, she had minor swelling to the lips. She went to her primary care provider's office, and was given a shot of Depo-Medrol and Benadryl. States that almost immediately afterwards, she had an increase in swelling to the lips. Denies any difficulty breathing. She continues to have hives on the arms and abdomen, which she states are very itchy. She believes that she's been on steroids and these antibiotics in the past, however it would have been several years ago. She otherwise denies any history of allergic reactions like this in the past. Denies any fevers, chills, sore throat, cough, dyspnea, chest pain, palpitations, abdominal pain, nausea, vomiting, diarrhea, back pain, or headaches. MD Complaint: allergic reaction, hives Symptoms: rash, itching, lip swelling Treatment Prior to Arrival: benadryl, steroids - Related Data Home Medications Medication Instructions Recorded Confirmed Cetirizine HCl [Zyrtec] 10 mg PO HS 04/26/20 04/06/22 Omeprazole 20 mg PO HS 04/26/20 04/06/22 Citalopram Hydrobromide [CeleXA] 40 mg PO Q48H 04/06/22 04/06/22 Citalopram Hydrobromide [CeleXA] 60 mg PO Q48H 04/06/22 04/06/22 Previous Rx's Medication Instructions Recorded dexAMETHasone [Decadron] 6 mg PO DAILY 4 Days #4 tablet 04/06/22 Allergies Allergy/AdvReac Type Severity Reaction Status Date / Time hydrocodone [From Vicodin] Allergy Nausea & Verified 04/06/22 10:58 Vomiting latex AdvReac Rash/Hives Verified 04/06/22 10:58 Review of Systems ROS Statement: Those systems with pertinent positive or pertinent negative responses have been documented in the HPI. ROS Other: All systems not noted in ROS Statement are negative. Past Medical History Past Medical History: No Reported History Additional Past Medical History / Comment(s): Obstetric history: She had a vaginal delivery [address] Reece History of Any Multi-Drug Resistant Organisms: None Reported Past Surgical History: Back Surgery, Hysterectomy Additional Past Surgical History / Comment(s): laminectomy L5-S1. wisdom teeth Past Anesthesia/Blood Transfusion Reactions: No Reported Reaction Additional Past Anesthesia/Blood Transfusion Reaction / Comment(s): 3 units PRBC 05/06 without reaction. after back surgery became very disoriented and angry with panic and anxiety Past Psychological History: No Psychological Hx Reported Smoking Status: Never smoker Past Alcohol Use History: Occasional Past Drug Use History: None Reported - Past Family History Father Family Medical History: No Reported History Mother Family Medical History: Blood Disorder Additional Family Medical History / Comment(s): anemia Brother(s) Family Medical History: Blood Disorder Additional Family Medical History / Comment(s): anemia General Exam Limitations: no limitations General appearance: alert, in no apparent distress Head exam: Present: atraumatic, normocephalic, normal inspection Eye exam: Present: normal appearance, PERRL, EOMI. Absent: scleral icterus, conjunctival injection, periorbital swelling ENT exam: Present: other (Swelling to the upper and lower lips. No pharyngeal edema or erythema.) Respiratory exam: Present: normal lung sounds bilaterally. Absent: respiratory distress, wheezes, rales, rhonchi, stridor Cardiovascular Exam: Present: regular rate, normal rhythm, normal heart sounds. Absent: systolic murmur, diastolic murmur, rubs, gallop, clicks Neurological exam: Present: alert, oriented X3, CN II-XII intact Psychiatric exam: Present: normal affect, normal mood Skin exam: Present: other (Urticaria to the trunk and bilateral upper extremities. Negative Nikolsky sign.) Course Vital Signs 04/06/22 04/06/22 04/06/22 09:49 11:21 14:20 Temperature 97.6 F Pulse Rate 90 87 91 Respiratory 18 18 18 Rate Blood Pressure 141/78 136/80 131/84 O2 Sat by Pulse 97 98 97 Oximetry Medical Decision Making - Medical Decision Making This is a 36-year-old female who presents to the emergency department for an allergic reaction. She was initially given IM Benadryl with Zantac. She was reevaluated an hour later, and started to experience coughing and tingling in her cheeks. She also felt like her rash became more itchy. In general, states that she overall felt worse. In consultation with Dr. Robb, he advised starting an IV with an additional 25 mg of Benadryl. I did speak with Aby, the pharmacist. She advised that an allergy to steroids would be exceedingly rare and she would not expect her to have swelling to the lips, however she cannot rule out that possibility. After receiving IV Benadryl, she had minor improvement in the swelling to the bottom of her lip, however the symptoms otherwise remained the same. The decision was subsequently made to give her IV Decadron. Within 15-20 minutes of receiving the Decadron, she started to note improvement. On reevaluation, her lip swelling had decreased significantly and she was talking much more clearly. Given the improvement with the Decadron, will send in a prescription for an additional 4 days to her pharmacy. Dosing instructions reviewed. She is instructed to continue taking the Benadryl with this. Return precautions reviewed in depth, the patient is instructed to return to the emergency department with any new, worsening, or concerning symptoms. Patient verbalized understanding. This case was discussed in detail with the attending ED physician. Presentation, findings, and treatment plan discussed in detail as well. Disposition Clinical Impression: Allergic reaction Disposition: HOME SELF-CARE Instructions (If sedation given, give patient instructions): Urticaria (ED) Additional Instructions: Return to the emergency department with any new, worsening, or concerning symptoms. Take the Decadron daily for 4 days. Continue to take Benadryl with this as well. Follow up with your primary care provider in 1-2 days. Prescriptions: dexAMETHasone [Decadron] 6 mg PO DAILY 4 Days #4 tablet Is patient prescribed a controlled substance at d/c from ED?: No Referrals: Brian Rivas MD [Primary Care Provider] - 1-2 days
[2022-04-06] MEDS ORDERED: diphenhydrAMINE 50 MG/ML 1 ML VIAL IVP STA (11:21)
[2022-04-06] MEDS ORDERED: DEXAMETHASONE SOD PHOSPHATE 10 MG/ML 1 ML VIAL IVP STA (12:28)
[2022-04-06 14:20] VITALS: BP 131/84; PULSE 91
== END 2022-04-06 14:25 | disposition home or self-care (01) ==
LOC: EC 09:48
DX: T36.8X5A Adverse effect of other systemic antibiotics, initial encounter (principal); Z88.5 Allergy status to narcotic agent; Z91.040 Latex allergy status
CPT/HCPCS: 99283; 96374; 96375; 96372; J1200; J1100

== ENCOUNTER → 2022-10-20 | Outpatient (CLI) | payer BC ==
--- NOTE | 2022-10-20 12:34 | MR ---
EXAMINATION TYPE: MR lumbar spine wo con DATE OF EXAM: 10/20/2022 11:46 AM COMPARISON: None CLINICAL INDICATION: Female, 37 years old with history of M43.07; PHH, Low back pain into buttocks an d dutch lower extremities TECHNIQUE: Multi planar, multi sequence imaging was performed utilizing: T1-weighted, T2-weighted, a nd turbo inversion recovery imaging of the lumbar spine. IV Contrast: . None. FINDINGS: Alignment: The lumbar vertebral bodies have preserved heights and alignment. Cord: The conus medullaris and the distal spinal cord appear unremarkable with regards to their signa l intensity and morphology. Bones/Discs: Modic endplate changes most pronounced along the 5 S1 adjoining endplates. There is disc space narrowing and disc desiccation at L5-S1. No abnormal there is mild bony edema within the adjoi ye endplates of L5-S1 compatible with reactive edema. T12-L1: No evidence of significant spinal canal stenosis or neural foraminal stenosis. L1-L2: No evidence of significant spinal canal stenosis or neural foraminal stenosis. L2-L3: No evidence of significant spinal canal stenosis or neural foraminal stenosis. L3-L4: No evidence of significant spinal canal stenosis or neural foraminal stenosis. L4-L5: Central disc protrusion without significant spinal canal stenosis. No evidence for significant neural foraminal stenosis. L5-S1: The disc is rounded posterior morphology without significant spina l canal stenosis. Facet joint arthropathy with mild neural foraminal stenosis. No significant spinal canal or neural foraminal stenosis in the remainder of the visualized levels. Other findings: None. IMPRESSION: 1. L4-L5 central disc protrusion without significant spinal canal or neural foraminal stenosis. 2. Mild degeneration changes throughout the spine worse at L5-S1.
== END | disposition home or self-care (01) ==
LOC: RADMRIMAIN 11:03
PROVIDERS: ATTEND Nurse Practitioner Family
DX: M43.07 Spondylolysis, lumbosacral region (principal); M51.36 Other intervertebral disc degeneration, lumbar region
CPT/HCPCS: 72148

== ENCOUNTER → 2023-06-30 | Outpatient (CLI) | payer BC ==
[2023-06-30 13:00] LABS: HCT 41.3 % (37.2-46.3); HGB 13.8 g/dL (12.0-15.0); MCH 29.4 pg (27.0-32.0); MCHC 33.4 g/dL (32.0-37.0); MCV 88.1 FL (80.0-97.0); NRBC Per 100 WBC 0 X 10*3/uL (0.00-0.01); Platelet Count 292 X 10*3/uL (140-440); RBC 4.69 X 10*6/uL (4.10-5.20); RDW 12.4 % (11.5-14.5); WBC 8.82 X 10*3/uL (4.50-10.00)
[2023-06-30 13:44] LABS: % Iron Saturation 19.11 (12.00-45.00); BUN/Creat Ratio 22.75 Ratio (12.00-20.00); Blood Urea Nitrogen 9.1 mg/dL (9.0-27.0); Carbon Dioxide 24.6 mmol/L (21.6-31.8); Chloride 105 mmol/L (96-109); Glucose 87 mg/dL (70-110); Iron 73 UG/DL (50-170); Potassium 4.2 mmol/L (3.5-5.5); Sodium 141 mmol/L (135-145); Total Iron Binding Capacity 382 UG/DL (228-460)
[2023-06-30 13:45] LABS: ALT 63 U/L (8-44); AST 43 U/L (13-35); Albumin 4.2 g/dL (3.8-4.9); Albumin/Globulin Ratio 1.56 Ratio (1.60-3.17); Alkaline Phosphatase 91 U/L (41-126); Calcium 9.2 mg/dL (8.7-10.3); Globulin 2.7 g/dL (1.6-3.3); Total Bilirubin 0.3 mg/dL (0.3-1.2); Total Protein 6.9 g/dL (6.2-8.2)
== END | disposition home or self-care (01) ==
LOC: LABWHC1 09:13
PROVIDERS: ATTEND Family Medicine
DX: E66.01 Morbid (severe) obesity due to excess calories (principal); D50.9 Iron deficiency anemia, unspecified; R53.83 Other fatigue
CPT/HCPCS: 36415; 80053; 82306; 82607; 82728; 82747; 83540; 83550; 84443; 84466; 85027

== ENCOUNTER → 2023-11-03 | Outpatient (CLI) | payer BC ==
[2023-11-03 13:20] LABS: Chol/HDL Ratio 4.68 Ratio
== END | disposition home or self-care (01) ==
LOC: LABWHC1 09:22
PROVIDERS: ATTEND Family Medicine
DX: Z00.01 Encounter for general adult medical examination with abnormal findings (principal); E55.9 Vitamin D deficiency, unspecified
CPT/HCPCS: 36415; 80061; 82306